=== PATIENT | female | born 1935 | race Caucasian/White ===

== ENCOUNTER → 2017-04-07 | Outpatient (CLI) | payer OTHER ==
[~2017-04-07] MED LIST: ABAC300; ACET325 PO; ACET500 PO; ALBU90OI; ALBU90OI INH; ALBU90OI6 INH; ALBU90OI61 INH; ALLO100 PO; ALPR.5 PO; ALUM320SU PO; ALUMAG30SU PO; AMIT100; AMIT25 PO; AMIT50 PO; AMLO10 PO; AMLO5 PO; AMOX1XR PO; ANTACID II SIM PO; ASPERCREME76.5 GM TOP; ASPI325 PO; ASPI81CH PO; ASPI81EC PO; ATOR20 PO; ATOR40TA; AZIT250 PO; AZIT500 PO; Acetaminophen325 M1 PO; Acidophilus La100 GM; Anti-Diarrheal2 MG PO; Artificial Tear15 M4 BOTHEYES; Aspir 8181 MG PO; Ativan0.5 MG PO; BIOTIN5000 MCG PO; BISA10S PR; BUSP5 PO; Bacid1 EACH PO; Bactrim 400-801 EACH PO; Bactrim Ds Tab1 EACH PO; Bactroban22 GM TOP; CEFP200 PO; CEPH500; CEPH500 PO; CHOL10002; CHOL10002 PO; CIPR250 PO; CITA20; CITA20 PO; CITALOPRAM PO; CLON.5; CLON.5 PO; CLOP75 PO; CLOT10 TOP; COLCRYS0.6 MG PO; COLL250TO TOP; CULTURELLE1 EACH PO; Citalopram HBr40 MG PO; Cleocin HCl300 MG PO; Colace100 MG PO; Culturelle1 CAP PO; D3-20002000 UNIT; DARB200I SC; DOCU100 PO; DOXY100 PO; ENOX40I SC; ENOX60I SC; ERGO50000 PO; ERYT1OIN LEFTEYE; ESCI10 PO; FAMO20 PO; FAMO40 PO; FEBU40TA; FEBU40TA PO; FENT25TP; FENTANYL PATCH TOP; FERR325 PO; FERREX; FLUC150A PO; FLUC200 PO; FLUO10 PO; FLUSAL2505 IH; FURO20; FURO20 PO; FURO40 PO; FURO80; FURO80 PO; Ferus150 MG PO; Fleet Enema132 ML PR; Florastor250 MG PO; GABA100 PO; GABA300 PO; GLYB5; Guaifenesin Wit10 ML PO; Guaifenesin-Co118 ML PO; HUMALIN N SQ; HYDACE5; HYDACE5 PO; HYDCHLSU; HYDR1TAB94; HYDR1TAB94 PO; HYDRA25 PO; Humalog100 UNIT/1 SC; INSDET100 SQ; INSLI100I SC; INSLI100I SUBQ; INSLIS75I; INSLIS75I SC; INSU7030P SC; INSUASPI SC; INSUASPI SS; INSULANI SC; INSULANI SUBQ; INSULANPEN SC; INSULANPEN SQ; IODOSORB; IRON PO; IRON150C PO; Keflex500 MG PO; Kristalose20 GM PO; LAVAP17G PO; LEVOTHYROXINE SODIUM PO; LEVSOD100; LEVSOD100 PO; LEVSOD112 PO; LEVSOD125 PO; LEVSOD137 PO; LEVSOD150 PO; LEVSOD75 PO; LISI10 PO; LISI20; LISI20 PO; LISI5 PO; LISINOPRIL PO; LOPE2C; LOPE2C PO; LOSHYD; Lantus100 UNIT/1; Lantus100 UNIT/1 SC; Lisinopril2.5 MG; Lisinopril2.5 MG PO; METF500C PO; METO10 PO; METO25; METO25 PO; METO25ER PO; METO50 PO; METO5A PO; METOPROLOL PO; METR500 PO; MIRT15 PO; MYLANTA; Macrobid 100 M100 MG PO; Metoprolol Tart25 MG PO; Micro-K10 MEQ PO; Milk Of Ma400 MG/5 M PO; NAPR500; NAPR550 PO; NEXIUM PO; NITR.4SL SL; NYST100P TOP; NYST100TC TOP; NYSTRITC TOP; Naproxen500 MG PO; Nitrostat0.4 MG SL; Norco 5-325 Ta1 EACH PO; Novolog100 UNIT/2; Novolog100 UNIT/2 SC; Nystatin15 GM TOP; OMEP20ER; OMEP20ER PO; OMEPRAZOLE MAGN20 MG PO; ONDA4ODT MM; OXYACE5T PO; OXYC10TA19 PO; OXYC5; OXYC5 PO; OXYCODONE 5 MG PO; Omeprazole20 M1; Oxycodone HCl5 M1 PO; PANT40 PO; PARI1 PO; POTA10T PO; POTCHL10ER; POTCHL10ER PO; PRAV20 PO; PRED20; PRED20 PO; PROCODE120 PO; PROM25 PO; Pedi-Dri 100,0060 GM TOP; Prinivil10 MG PO; Prozac20 MG PO; QUET100 PO; QUET25 PO; ROXICODONE5 MG PO; Roxicodone5 MG PO; SACC250C; SACC250C PO; SERT25 PO; SULTRIDS PO; Seroquel50 MG PO; Synthroid125 MCG; Synthroid150 MCG; Synthroid175 MCG PO; Systane 0.3-0.1 EACH BOTHEYES; TOCO400 PO; TRAM50 PO; TRAZ50 PO; Tylenol325 MG PO; Uloric80 MG PO; Unasyn 3 gm3 GM IM; VALS160; VANCOMYCIN HCL PO; VIIBRYD20 MG PO; VITAMIN D22000 UNIT PO; VITAMIN D35000 UNI1 PO; VITAMIN D35000 UNIT PO; Vancocin HCL1000 M1 PO; Zithromax250 MG PO; [UNRECOGNIZED DRUG - CODE]; [UNRECOGNIZED DRUG - OTHER]; [UNRECOGNIZED DRUG - OTHER] PO
[2017-04-07 08:43] LABS: Bilirubin, Urine Neg (Neg); Blood, Urine Neg (Neg); Glucose Qualitative, Urine Neg (Neg); Ketones, Urine Neg (Neg); Leukocyte Esterase, Urine 1+ (Neg); Nitrite, Urine Neg (Neg); Protein, Urine Neg (Neg); Urobilinogen, Urine NORM (Normal)
[2017-04-07 08:57] LABS: Appearance, Urine Clear (Clear); Color, Urine Yellow (P-Yellow)
[2017-04-07 08:59] LABS: Bacteria Few /hpf; Granular Casts 0-2 /lpf (0); Red Blood Cells, Urine Not Seen /hpf (0-2); Squamous Epithelial Cells Few /hpf (Few)
== END ==
LOC: LAB 08:07 → LAB SHORT 08:07
PROVIDERS: Nurse Practitioner Primary Care
DX: N39.0 Urinary tract infection, site not specified (principal)
CPT/HCPCS: 81001; 87086

== ENCOUNTER 2017-04-13 17:32 | Emergency (ER) | payer OTHER ==
[~2017-04-13] VITALS: Ht 162.6 cm; Wt 90.7 kg
[~2017-04-13 17:32] MED LIST changes: -Artificial Tear15 M4 BOTHEYES; -CHOL10002; -ERYT1OIN LEFTEYE; -FEBU40TA; -FEBU40TA PO; -FURO80 PO; -Keflex500 MG PO; -Kristalose20 GM PO; -NYSTRITC TOP; -Novolog100 UNIT/2 SC; -Pedi-Dri 100,0060 GM TOP; -Systane 0.3-0.1 EACH BOTHEYES; -Uloric80 MG PO
[2017-04-13] MEDS ORDERED: Culturelle1 CAP PO (17:50)
[2017-04-13] MEDS ORDERED: NYSTRITC TOP (17:55)
[2017-12-26] MEDS ORDERED: ERYT1OIN LEFTEYE (13:27)
[2018-01-07] MEDS ORDERED: INSULANPEN SC (14:06)
[2018-01-07] MEDS ORDERED: Novolog100 UNIT/2 SC (14:13)
[2018-01-20] MEDS ORDERED: FURO80 PO (19:12)
[2018-01-20] MEDS ORDERED: Uloric80 MG PO (19:18)
[2018-01-20] MEDS ORDERED: Pedi-Dri 100,0060 GM TOP (19:20)
[2018-01-20] MEDS ORDERED: Systane 0.3-0.1 EACH BOTHEYES (19:21)
== END 2017-04-13 19:46 | disposition home or self-care (01) ==
LOC: ER 17:32
DX: M79.644 Pain in right finger(s) (principal); Z88.8 Allergy status to other drugs, medicaments and biological substances; Z88.1 Allergy status to other antibiotic agents; Z79.899 Other long term (current) drug therapy; Z79.4 Long term (current) use of insulin; Z79.82 Long term (current) use of aspirin; E11.9 Type 2 diabetes mellitus without complications; I11.0 Hypertensive heart disease with heart failure; I50.9 Heart failure, unspecified; K21.9 Gastro-esophageal reflux disease without esophagitis; E03.9 Hypothyroidism, unspecified; F41.9 Anxiety disorder, unspecified; F32.9 Major depressive disorder, single episode, unspecified
CPT/HCPCS: 29130; 73130; 99283

== ENCOUNTER 2017-06-06 09:56 | Day surgery (SDC) | payer OTHER ==
[~2017-06-06] VITALS: Ht 162.6 cm; Wt 100.7 kg
[~2017-06-06 09:56] MED LIST changes: +NYSTRITC TOP
[2017-06-06] MEDS ORDERED: ALLO100 PO (11:19)
[2017-06-06] MEDS ORDERED: CLOP75 PO (11:20)
[2017-06-06] MEDS ORDERED: HYDR1TAB94 PO ×2 (11:27→11:28)
== END 2017-06-06 15:15 | disposition home or self-care (01) ==
LOC: ORSCSDS 09:56
PROVIDERS: Orthopaedic Surgery
PROC: 0LB Tendons, Excision (ICD-10-PCS; principal; 2017-06-06 12:00)
PROC: 0X6Q0Z2 Detachment at Right Middle Finger, Mid, Open Approach (ICD-10-PCS; principal; 2017-06-06 12:00)
DX: S62.652A Nondisplaced fracture of middle phalanx of right middle finger, initial encounter for closed fracture (principal); M1A.9XX1 Chronic gout, unspecified, with tophus (tophi); I10 Essential (primary) hypertension; I25.10 Atherosclerotic heart disease of native coronary artery without angina pectoris; J44.9 Chronic obstructive pulmonary disease, unspecified; G47.33 Obstructive sleep apnea (adult) (pediatric); E11.9 Type 2 diabetes mellitus without complications; E03.9 Hypothyroidism, unspecified; E78.5 Hyperlipidemia, unspecified; E66.01 Morbid (severe) obesity due to excess calories; Z79.82 Long term (current) use of aspirin; Z79.899 Other long term (current) drug therapy; Z79.4 Long term (current) use of insulin
CPT/HCPCS: 82947; 88305; 88311; 89060; J0171; J0690; J2550; J3010

== ENCOUNTER 2017-08-09 13:55 | Emergency (ER) | payer OTHER ==
[~2017-08-09] VITALS: Ht 162.6 cm; Wt 104.3 kg
[2017-08-09 15:53] LABS: BASOPHILS ABSOLUTE AUTO 0.04 K/mm3 (0.00-0.23); BASOPHILS PERCENT AUTO 1 % (0-2); EOSINOPHILS ABSOLUTE AUTO 0.09 K/mm3 (0.00-0.68); EOSINOPHILS PERCENT AUTO 1 % (0-6); Hematocrit 39.1 % (33.0-51.0); Hemoglobin 12.9 g/dL (11.5-16.0); IMMATURE GRAN ABSOLUTE AUTO 0.12 K/mm3 (0.00-0.10); IMMATURE GRAN PERCENT AUTO 2 % (0-1); LYMPHOCYTES ABSOLUTE AUTO 2.15 K/mm3 (0.84-5.20); LYMPHOCYTES PERCENT AUTO 27 % (21-46); MONOCYTES ABSOLUTE AUTO 1.43 K/mm3 (0.16-1.47); MONOCYTES PERCENT AUTO 18 % (4-13); Mean Corpuscular HGB 31.8 pg (26.0-34.0); Mean Corpuscular Volume 96 fL (80-100); Mean Platelet Volume 11.2 fL (9.1-12.4); NEUTROPHILS ABSOLUTE AUTO 4.11 K/mm3 (1.96-9.15); NEUTROPHILS PERCENT AUTO 52 % (41-73); Platelet Count 158 K/mm3 (150-400); RDW Coefficient Variation 13.5 % (11.7-14.2); RDW Standard Deviation 47.8 fL (35.1-46.3); Red Blood Cell Count 4.06 M/mm3 (3.80-5.20); White Blood Cell Count 7.94 K/mm3 (4.00-11.30)
[2017-08-09 16:09] LABS: Troponin I <0.015 ng/mL (0.000-0.040)
[2017-08-09 16:45] LABS: Alanine Aminotransfer (ALT/SGP 12 U/L (12-78); Albumin, Blood 3.7 g/dL (3.4-5.0); Anion Gap 9 mmol/L (6-16); Aspartate Aminotrans (AST/SGOT 14 U/L (12-37); Blood Urea Nitrogen 58 mg/dL (8-24); CO2, Blood 26 mmol/L (21-32); Calcium, Blood 8.7 mg/dL (8.5-10.1); Chloride, Blood 102 mmol/L (98-108); Creatinine, Blood 2.07 mg/dL (0.40-1.00); Globulin, Blood 3.8 g/dL (2.2-4.0); Glomerular Filtration Rate 24 (60-); Glucose, Blood 190 mg/dL (70-99); Sodium, Blood 137 mmol/L (136-145); Total Protein, Blood 7.5 g/dL (6.4-8.2)
[2017-08-09 16:59] LABS: Alk Phos 131 U/L (50-136); Bilirubin, Total 0.5 mg/dL (0.1-1.0)
[2017-08-09] MEDS ORDERED: Norco 5-325 Ta1 EACH PO (17:20)
== END 2017-08-09 18:52 | disposition home or self-care (01) ==
LOC: ER 13:55
PROVIDERS: Emergency Medicine
DX: S29.011A Strain of muscle and tendon of front wall of thorax, initial encounter (principal); X58.XXXA Exposure to other specified factors, initial encounter; Z88.8 Allergy status to other drugs, medicaments and biological substances; Z88.1 Allergy status to other antibiotic agents; Z79.899 Other long term (current) drug therapy; Z79.4 Long term (current) use of insulin; Z79.82 Long term (current) use of aspirin; E11.9 Type 2 diabetes mellitus without complications; I11.0 Hypertensive heart disease with heart failure; I50.9 Heart failure, unspecified; K21.9 Gastro-esophageal reflux disease without esophagitis; F41.9 Anxiety disorder, unspecified; F32.9 Major depressive disorder, single episode, unspecified
CPT/HCPCS: 36415; 71046; 80053; 84484; 85025; 85379; 93005; 93010; 99284-25; J3010

== ENCOUNTER 2017-08-22 04:57 | Emergency (ER) | payer OTHER ==
[~2017-08-22] VITALS: Ht 162.6 cm; Wt 113.4 kg
[2017-08-22] MEDS ORDERED: FEBU40TA PO (05:32)
[2017-08-22] MEDS ORDERED: Artificial Tear15 M4 BOTHEYES (05:34)
[2017-08-22] MEDS ORDERED: HYDR1TAB94 PO (07:14)
[2017-08-22] MEDS ORDERED: Keflex500 MG PO (07:14)
== END 2017-08-22 07:52 | disposition home or self-care (01) ==
LOC: ER 04:57
DX: M25.522 Pain in left elbow (principal); E11.9 Type 2 diabetes mellitus without complications; I11.0 Hypertensive heart disease with heart failure; I50.9 Heart failure, unspecified; K21.9 Gastro-esophageal reflux disease without esophagitis; F41.9 Anxiety disorder, unspecified; F32.9 Major depressive disorder, single episode, unspecified; Z88.8 Allergy status to other drugs, medicaments and biological substances; Z88.1 Allergy status to other antibiotic agents; Z79.4 Long term (current) use of insulin; Z79.899 Other long term (current) drug therapy; Z79.82 Long term (current) use of aspirin
CPT/HCPCS: 73080; 84550; 99284

== ENCOUNTER 2017-09-14 20:53 | Emergency (ER) | payer OTHER ==
[~2017-09-14] VITALS: Ht 162.6 cm; Wt 90.7 kg
[~2017-09-14 20:53] MED LIST changes: +Artificial Tear15 M4 BOTHEYES; +FEBU40TA PO; +Keflex500 MG PO
[2017-09-14] MEDS ORDERED: HYDR1TAB94 PO (21:39)
[2017-09-14] MEDS ORDERED: Kristalose20 GM PO (21:45)
== END 2017-09-14 22:30 | disposition home or self-care (01) ==
LOC: ER 20:53
DX: K59.00 Constipation, unspecified (principal); I11.0 Hypertensive heart disease with heart failure; I50.9 Heart failure, unspecified; E11.9 Type 2 diabetes mellitus without complications; E03.9 Hypothyroidism, unspecified; F41.9 Anxiety disorder, unspecified; F32.9 Major depressive disorder, single episode, unspecified; K21.9 Gastro-esophageal reflux disease without esophagitis; Z79.4 Long term (current) use of insulin; Z79.899 Other long term (current) drug therapy; Z79.82 Long term (current) use of aspirin
CPT/HCPCS: 74018; 99283-25

== ENCOUNTER 2017-11-02 17:52 | Emergency (ER) | payer OTHER ==
[~2017-11-02] VITALS: Ht 167.6 cm; Wt 108.9 kg
[~2017-11-02 17:52] MED LIST changes: +Kristalose20 GM PO
[2017-11-02 18:10] LABS: Source, Urine Clean Catch
[2017-11-02 18:14] LABS: Appearance, Urine Cloudy (Clear); Bilirubin, Urine Neg (Neg); Blood, Urine 3+ (Neg); Color, Urine Yellow (P-Yellow); Glucose Qualitative, Urine Neg (Neg); Ketones, Urine Neg (Neg); Leukocyte Esterase, Urine 3+ (Neg); Nitrite, Urine Pos (Neg); Protein, Urine 2+ (Neg); Urobilinogen, Urine NORM (Normal)
[2017-11-02 18:33] LABS: BASOPHILS ABSOLUTE AUTO 0.03 K/mm3 (0.00-0.23); BASOPHILS PERCENT AUTO 0 % (0-2); EOSINOPHILS ABSOLUTE AUTO 0.04 K/mm3 (0.00-0.68); EOSINOPHILS PERCENT AUTO 0 % (0-6); Hematocrit 37.2 % (33.0-51.0); IMMATURE GRAN ABSOLUTE AUTO 0.07 K/mm3 (0.00-0.10); IMMATURE GRAN PERCENT AUTO 1 % (0-1); LYMPHOCYTES ABSOLUTE AUTO 2.42 K/mm3 (0.84-5.20); LYMPHOCYTES PERCENT AUTO 26 % (21-46); MONOCYTES ABSOLUTE AUTO 1.68 K/mm3 (0.16-1.47); MONOCYTES PERCENT AUTO 18 % (4-13); Mean Corpuscular HGB 31.7 pg (26.0-34.0); Mean Corpuscular HGB Conc 32.3 g/dL (31.5-36.5); Mean Corpuscular Volume 98 fL (80-100); Mean Platelet Volume 10.5 fL (9.1-12.4); NEUTROPHILS ABSOLUTE AUTO 4.91 K/mm3 (1.96-9.15); NEUTROPHILS PERCENT AUTO 54 % (41-73); Platelet Count 155 K/mm3 (150-400); RDW Coefficient Variation 13.2 % (11.7-14.2); RDW Standard Deviation 47.8 fL (35.1-46.3); Red Blood Cell Count 3.78 M/mm3 (3.80-5.20); White Blood Cell Count 9.15 K/mm3 (4.00-11.30)
[2017-11-02 18:35] LABS: Bacteria Many /hpf; White Blood Cells, Urine TNTC /hpf (0-5)
[2017-11-02 18:36] LABS: Oval Fat Bodies Rare /lpf; Squamous Epithelial Cells Few /hpf (Few)
[2017-11-02 19:17] LABS: Albumin, Blood 3.6 g/dL (3.4-5.0); Bilirubin, Total 0.6 mg/dL (0.1-1.0); Bun/Creatinine Ratio 15.5 (12.0-20.0); Calcium, Blood 9.1 mg/dL (8.5-10.1); Creatinine, Blood 2.45 mg/dL (0.40-1.00); Globulin, Blood 3.7 g/dL (2.2-4.0); Potassium, Blood 3.9 mmol/L (3.5-5.5); Total Protein, Blood 7.3 g/dL (6.4-8.2)
[2017-11-02] MEDS ORDERED: CEPH500 PO (19:17)
== END 2017-11-02 20:37 | disposition home or self-care (01) ==
LOC: ER 17:52
PROVIDERS: Emergency Medicine
DX: N39.0 Urinary tract infection, site not specified (principal); I13.0 Hypertensive heart and chronic kidney disease with heart failure and stage 1 through stage 4 chronic kidney disease, or unspecified chronic kidney disease; E11.22 Type 2 diabetes mellitus with diabetic chronic kidney disease; N18.9 Chronic kidney disease, unspecified; I50.9 Heart failure, unspecified; K21.9 Gastro-esophageal reflux disease without esophagitis; E03.9 Hypothyroidism, unspecified; F41.9 Anxiety disorder, unspecified; F32.9 Major depressive disorder, single episode, unspecified; Z88.8 Allergy status to other drugs, medicaments and biological substances; Z88.1 Allergy status to other antibiotic agents; Z79.899 Other long term (current) drug therapy; Z79.4 Long term (current) use of insulin; Z79.82 Long term (current) use of aspirin
CPT/HCPCS: 36415; 51701; 80053; 81001; 85025; 87077; 87086; 87186; 96365; 99285-25; J0696

== ENCOUNTER 2017-11-09 04:24 | Emergency (ER) | payer OTHER ==
[~2017-11-09] VITALS: Ht 162.6 cm; Wt 113.4 kg
[2017-11-09] MEDS ORDERED: Culturelle1 CAP PO (04:39)
[2017-11-09] MEDS ORDERED: Novolog100 UNIT/2 (04:40)
[2017-11-09] MEDS ORDERED: CHOL10002 (04:41)
[2017-11-09] MEDS ORDERED: FEBU40TA (04:41)
[2017-11-09 05:10] LABS: Calcium, Ionized (POC) 1.08 mmol/L (1.10-1.46); Chloride (POC) 96 mmol/L (98-108); Creatinine (POC) 2.2 mg/dL (0.6-1.0); Glucose (ISTAT POC) 208 mg/dL (70-99); Hemoglobin (POC) 11.2 g/dL (12.0-16.0); Sodium (POC) 135 mmol/L (135-148); Total CO2 (POC) 28 mmol/L (21-32)
[2017-11-09 05:18] LABS: BASOPHILS ABSOLUTE AUTO 0.03 K/mm3 (0.00-0.23); BASOPHILS PERCENT AUTO 1 % (0-2); EOSINOPHILS ABSOLUTE AUTO 0.07 K/mm3 (0.00-0.68); EOSINOPHILS PERCENT AUTO 1 % (0-6); Hematocrit 34.1 % (33.0-51.0); Hemoglobin 11.3 g/dL (11.5-16.0); IMMATURE GRAN ABSOLUTE AUTO 0.11 K/mm3 (0.00-0.10); IMMATURE GRAN PERCENT AUTO 2 % (0-1); LYMPHOCYTES PERCENT AUTO 29 % (21-46); MONOCYTES ABSOLUTE AUTO 0.66 K/mm3 (0.16-1.47); MONOCYTES PERCENT AUTO 12 % (4-13); Mean Corpuscular HGB 32.2 pg (26.0-34.0); Mean Corpuscular HGB Conc 33.1 g/dL (31.5-36.5); Mean Corpuscular Volume 97 fL (80-100); Mean Platelet Volume 10.1 fL (9.1-12.4); NEUTROPHILS ABSOLUTE AUTO 3.14 K/mm3 (1.96-9.15); NEUTROPHILS PERCENT AUTO 56 % (41-73); Platelet Count 194 K/mm3 (150-400); RDW Standard Deviation 46.5 fL (35.1-46.3); Red Blood Cell Count 3.51 M/mm3 (3.80-5.20); White Blood Cell Count 5.61 K/mm3 (4.00-11.30)
[2017-11-09 05:40] LABS: Alanine Aminotransfer (ALT/SGP 16 U/L (12-78); Albumin, Blood 3.3 g/dL (3.4-5.0); Albumin/Globulin Ratio 0.9 (0.8-1.8); Alk Phos 105 U/L (50-136); Anion Gap 8 mmol/L (6-16); Aspartate Aminotrans (AST/SGOT 15 U/L (12-37); Bilirubin, Total 0.5 mg/dL (0.1-1.0); Blood Urea Nitrogen 50 mg/dL (8-24); Bun/Creatinine Ratio 24.3 (12.0-20.0); CO2, Blood 28 mmol/L (21-32); Calcium, Blood 8.7 mg/dL (8.5-10.1); Chloride, Blood 99 mmol/L (98-108); Creatinine, Blood 2.06 mg/dL (0.40-1.00); Globulin, Blood 3.7 g/dL (2.2-4.0); Glomerular Filtration Rate 25 (60-); Glucose, Blood 201 mg/dL (70-99); Sodium, Blood 135 mmol/L (136-145); Troponin I <0.015 ng/mL (0.000-0.040)
[2017-11-09 05:53] LABS: Bilirubin, Urine Neg (Neg); Blood, Urine Neg (Neg); Glucose Qualitative, Urine Neg (Neg); Ketones, Urine Neg (Neg); Leukocyte Esterase, Urine Neg (Neg); Nitrite, Urine Neg (Neg); Protein, Urine Neg (Neg); Urobilinogen, Urine NORM (Normal)
[2017-11-09 06:02] LABS: Appearance, Urine Clear (Clear); Color, Urine Yellow (P-Yellow)
== END 2017-11-09 08:01 | disposition home or self-care (01) ==
LOC: ER 04:24
PROVIDERS: Emergency Medicine
DX: M54.5 Low back pain (principal); E11.9 Type 2 diabetes mellitus without complications; I10 Essential (primary) hypertension; I50.9 Heart failure, unspecified; K21.9 Gastro-esophageal reflux disease without esophagitis; E03.9 Hypothyroidism, unspecified; F31.9 Bipolar disorder, unspecified; F41.9 Anxiety disorder, unspecified; Z88.8 Allergy status to other drugs, medicaments and biological substances; Z88.1 Allergy status to other antibiotic agents; Z79.899 Other long term (current) drug therapy; Z79.4 Long term (current) use of insulin; Z79.82 Long term (current) use of aspirin; Z79.01 Long term (current) use of anticoagulants
CPT/HCPCS: 36415; 51701; 80047; 80053; 81003; 84484; 85014; 85025; 93005; 93010; 99284-25

== ENCOUNTER 2018-02-12 17:59 | Emergency (ER) | payer OTHER ==
[~2018-02-12] VITALS: Ht 170.2 cm; Wt 95.2 kg
[~2018-02-12 17:59] MED LIST changes: +CHOL10002; +ERYT1OIN LEFTEYE; +FEBU40TA; +FURO80 PO; +Novolog100 UNIT/2 SC; +Pedi-Dri 100,0060 GM TOP; +Systane 0.3-0.1 EACH BOTHEYES; +Uloric80 MG PO
== END 2018-02-12 19:54 | disposition home or self-care (01) ==
LOC: ER 17:59
DX: R51 Headache (principal); I11.0 Hypertensive heart disease with heart failure; I50.9 Heart failure, unspecified; E11.9 Type 2 diabetes mellitus without complications; K21.9 Gastro-esophageal reflux disease without esophagitis; E03.9 Hypothyroidism, unspecified; F32.9 Major depressive disorder, single episode, unspecified; F41.9 Anxiety disorder, unspecified; Z79.4 Long term (current) use of insulin; Z79.899 Other long term (current) drug therapy
CPT/HCPCS: 70450; 99284-25

== ENCOUNTER 2018-02-25 04:57 | Emergency (ER) | payer OTHER ==
[~2018-02-25] VITALS: Ht 154.9 cm; Wt 113.4 kg
[2018-02-25 05:25] LABS: Calcium, Ionized (POC) 1.09 mmol/L (1.10-1.46); Chloride (POC) 98 mmol/L (98-108); Creatinine (POC) 2.2 mg/dL (0.6-1.0); Glucose (ISTAT POC) 202 mg/dL (70-99); Hemoglobin (POC) 11.9 g/dL (12.0-16.0); Potassium (POC) 3.7 mmol/L (3.5-5.5); Sodium (POC) 139 mmol/L (135-148); Total CO2 (POC) 28 mmol/L (21-32)
[2018-02-25] MEDS ORDERED: CULTURELLE PRO1 EACH PO (05:30)
[2018-02-25 05:46] LABS: BASOPHILS ABSOLUTE AUTO 0.03 K/mm3 (0.00-0.23); BASOPHILS PERCENT AUTO 1 % (0-2); EOSINOPHILS ABSOLUTE AUTO 0.06 K/mm3 (0.00-0.68); EOSINOPHILS PERCENT AUTO 1 % (0-6); Hematocrit 37.6 % (33.0-51.0); Hemoglobin 12.3 g/dL (11.5-16.0); IMMATURE GRAN ABSOLUTE AUTO 0.05 K/mm3 (0.00-0.10); IMMATURE GRAN PERCENT AUTO 1 % (0-1); LYMPHOCYTES ABSOLUTE AUTO 2.01 K/mm3 (0.84-5.20); LYMPHOCYTES PERCENT AUTO 35 % (21-46); MONOCYTES ABSOLUTE AUTO 0.62 K/mm3 (0.16-1.47); MONOCYTES PERCENT AUTO 11 % (4-13); Mean Corpuscular HGB Conc 32.7 g/dL (31.5-36.5); Mean Corpuscular Volume 98 fL (80-100); Mean Platelet Volume 10.4 fL (9.1-12.4); NEUTROPHILS ABSOLUTE AUTO 2.94 K/mm3 (1.96-9.15); NEUTROPHILS PERCENT AUTO 51 % (41-73); Platelet Count 137 K/mm3 (150-400); RDW Standard Deviation 45.6 fL (35.1-46.3); Red Blood Cell Count 3.84 M/mm3 (3.80-5.20); White Blood Cell Count 5.71 K/mm3 (4.00-11.30)
[2018-02-25] MEDS ORDERED: NITR.4SL SL (05:48)
[2018-02-25 05:59] LABS: Alanine Aminotransfer (ALT/SGP 7 U/L (12-78); Albumin, Blood 3.4 g/dL (3.4-5.0); Albumin/Globulin Ratio 0.9 (0.8-1.8); Alk Phos 93 U/L (50-136); Anion Gap 8 mmol/L (6-16); Aspartate Aminotrans (AST/SGOT 12 U/L (12-37); Bilirubin, Total 0.4 mg/dL (0.1-1.0); Blood Urea Nitrogen 47 mg/dL (8-24); Bun/Creatinine Ratio 19.6 (12.0-20.0); CO2, Blood 30 mmol/L (21-32); Calcium, Blood 8.4 mg/dL (8.5-10.1); Chloride, Blood 101 mmol/L (98-108); Ethanol (Alcohol), Blood, Med <3 mg/dL; Globulin, Blood 3.6 g/dL (2.2-4.0); Glomerular Filtration Rate 21 (60-); Glucose, Blood 200 mg/dL (70-99); Potassium, Blood 3.9 mmol/L (3.5-5.5); Sodium, Blood 139 mmol/L (136-145)
[2018-02-25 07:07] LABS: Source, Urine Clean Catch
[2018-02-25 07:21] LABS: Bilirubin, Urine Neg (Neg); Blood, Urine 1+ (Neg); Glucose Qualitative, Urine Neg (Neg); Ketones, Urine Neg (Neg); Leukocyte Esterase, Urine 3+ (Neg); Nitrite, Urine Neg (Neg); Protein, Urine Neg (Neg); Urobilinogen, Urine NORM (Normal)
[2018-02-25 07:23] LABS: Appearance, Urine Hazy (Clear); Color, Urine Yellow (P-Yellow)
[2018-02-25 07:34] LABS: White Blood Cells, Urine TNTC /hpf (0-5)
[2018-02-25 07:35] LABS: Bacteria Many /hpf; Red Blood Cells, Urine 0-2 /hpf (0-2); Squamous Epithelial Cells Mod /hpf (Few); Transitional Epithelial Cells Few /hpf (0-Rare)
[2018-02-25 07:36] LABS: U Amphetamine Screen Not Detected; U Barbituate Screen Not Detected; U Benzodiazapine Screen Not Detected; U Buprenorphine Screen Not Detected; U Cannabinoids Screen Not Detected; U Cocaine Screen Not Detected; U Methadone Screen Not Detected; U Methamphetamine Screen Not Detected; U Opiates Screen Not Detected; U Oxycodone Screen Not Detected; U Phencyclidine Screen Not Detected; U Propoxyphene Screen Not Detected
[2018-02-25] MEDS ORDERED: Macrobid 100 M100 MG PO (09:46)
== END 2018-02-25 11:25 | disposition home or self-care (01) ==
LOC: ER 04:57
PROVIDERS: Emergency Medicine
DX: N39.0 Urinary tract infection, site not specified (principal); I11.0 Hypertensive heart disease with heart failure; I50.9 Heart failure, unspecified; E11.9 Type 2 diabetes mellitus without complications; K21.9 Gastro-esophageal reflux disease without esophagitis; E03.9 Hypothyroidism, unspecified; F41.9 Anxiety disorder, unspecified; F32.9 Major depressive disorder, single episode, unspecified; Z88.8 Allergy status to other drugs, medicaments and biological substances; Z79.899 Other long term (current) drug therapy; Z79.4 Long term (current) use of insulin
CPT/HCPCS: 71046; 80047; 80053; 81001; 85014; 85025; 87086; 93005; 93010; 96365; 99285-25; G0480; J0696; P9612

== ENCOUNTER 2018-07-24 23:44 | Inpatient (IN) | payer OTHER ==
[~2018-07-24] VITALS: Ht 162.6 cm; Wt 98.6 kg
[~2018-07-24 23:44] MED LIST changes: +CULTURELLE PRO1 EACH PO
[2018-07-25 00:21] LABS: BASOPHILS ABSOLUTE AUTO 0.02 K/mm3 (0.00-0.23); BASOPHILS PERCENT AUTO 0 % (0-2); EOSINOPHILS ABSOLUTE AUTO 0.03 K/mm3 (0.00-0.68); EOSINOPHILS PERCENT AUTO 1 % (0-6); Hematocrit 37.8 % (33.0-51.0); Hemoglobin 12.1 g/dL (11.5-16.0); IMMATURE GRAN ABSOLUTE AUTO 0.09 K/mm3 (0.00-0.10); IMMATURE GRAN PERCENT AUTO 1 % (0-1); LYMPHOCYTES ABSOLUTE AUTO 0.96 K/mm3 (0.84-5.20); LYMPHOCYTES PERCENT AUTO 15 % (21-46); MONOCYTES ABSOLUTE AUTO 0.97 K/mm3 (0.16-1.47); MONOCYTES PERCENT AUTO 15 % (4-13); Mean Corpuscular Volume 94 fL (80-100); Mean Platelet Volume 10.4 fL (9.1-12.4); NEUTROPHILS ABSOLUTE AUTO 4.34 K/mm3 (1.96-9.15); NEUTROPHILS PERCENT AUTO 68 % (41-73); Platelet Count 123 K/mm3 (150-400); RDW Coefficient Variation 12.7 % (11.7-14.2); RDW Standard Deviation 43.4 fL (35.1-46.3); Red Blood Cell Count 4.04 M/mm3 (3.80-5.20); White Blood Cell Count 6.41 K/mm3 (4.00-11.30)
[2018-07-25 00:40] LABS: Alanine Aminotransfer (ALT/SGP 13 U/L (12-78); Albumin, Blood 3.4 g/dL (3.4-5.0); Albumin/Globulin Ratio 0.9 (0.8-1.8); Alk Phos 81 U/L (50-136); Anion Gap 7 mmol/L (6-16); Aspartate Aminotrans (AST/SGOT 12 U/L (12-37); Bilirubin, Total 0.4 mg/dL (0.1-1.0); Blood Urea Nitrogen 46 mg/dL (8-24); Bun/Creatinine Ratio 23.6 (12.0-20.0); CO2, Blood 28 mmol/L (21-32); Calcium, Blood 8.5 mg/dL (8.5-10.1); Chloride, Blood 103 mmol/L (98-108); Creatinine, Blood 1.95 mg/dL (0.40-1.00); Globulin, Blood 3.8 g/dL (2.2-4.0); Glomerular Filtration Rate 26 (60-); Glucose, Blood 163 mg/dL (70-99); Potassium, Blood 3.5 mmol/L (3.5-5.5); Sodium, Blood 138 mmol/L (136-145); Total Protein, Blood 7.2 g/dL (6.4-8.2); Troponin I <0.015 ng/mL (0.000-0.040)
[2018-07-25 01:05] LABS: Source, Urine Catheter
[2018-07-25 01:07] LABS: Bilirubin, Urine Neg (Neg); Blood, Urine 2+ (Neg); Glucose Qualitative, Urine Neg (Neg); Ketones, Urine Neg (Neg); Leukocyte Esterase, Urine Neg (Neg); Nitrite, Urine Neg (Neg); Protein, Urine 2+ (Neg); Urobilinogen, Urine NORM (Normal)
[2018-07-25 01:11] LABS: Appearance, Urine Clear (Clear); Color, Urine Yellow (P-Yellow)
[2018-07-25 01:29] LABS: Bacteria Few /hpf; Squamous Epithelial Cells Mod /hpf (Few); White Blood Cells, Urine 0-2 /hpf (0-5)
--- NOTE | 2018-07-25 05:00 | NUR ---
ADMIT NOTE: ADMIT 83 YEAR OLD FEMALE TO ICU [address] HERMELINDO GUDINO VIA ER. TRANSFER TO BED USING TRANFER SHEET. MONITOR PLACE SHOWING SINUS RHYTHM WITH FIRST DEGREE BLOCK HEART RATE 70'S-80'S. DENIES DISCOMFORT. BBLOOD CONSENT AND RELEASE OF INFORMATION COMPLETED. LUNG SOUNDS CLEAR WITH SLIGHTLY DECREASED BASES RESPIRATIONS REGULAR AND EASY AT REST WITH O2 IN PLACE AT 2L/MIN PER NASAL CANNULA SPO2 94-96%. ABDOMEN SOFT WITH BOWEL SOUNDS FOUR QUADS. INCONTINENT OF URINE ATTENDS CHANGED. ASSISTS WITH REPOSITIONING. CONTINUE TO MONITOR AND REPORT CHANGE IN PATIENT CONDITION. NARES THROAT AND RECTAL SWABS OBTAINED TO CLEAR ISOLATION.SKIN DRY INTACT NO EDEMA NOTED
[2018-07-25 05:27] LABS: BASOPHILS ABSOLUTE AUTO 0.01 K/mm3 (0.00-0.23); BASOPHILS PERCENT AUTO 0 % (0-2); EOSINOPHILS ABSOLUTE AUTO 0.01 K/mm3 (0.00-0.68); EOSINOPHILS PERCENT AUTO 0 % (0-6); Hematocrit 35.4 % (33.0-51.0); Hemoglobin 11.6 g/dL (11.5-16.0); IMMATURE GRAN ABSOLUTE AUTO 0.07 K/mm3 (0.00-0.10); IMMATURE GRAN PERCENT AUTO 1 % (0-1); LYMPHOCYTES ABSOLUTE AUTO 1.03 K/mm3 (0.84-5.20); LYMPHOCYTES PERCENT AUTO 17 % (21-46); MONOCYTES ABSOLUTE AUTO 0.56 K/mm3 (0.16-1.47); MONOCYTES PERCENT AUTO 9 % (4-13); Mean Corpuscular HGB 30.4 pg (26.0-34.0); Mean Corpuscular HGB Conc 32.8 g/dL (31.5-36.5); Mean Corpuscular Volume 93 fL (80-100); Mean Platelet Volume 10.1 fL (9.1-12.4); NEUTROPHILS ABSOLUTE AUTO 4.34 K/mm3 (1.96-9.15); NEUTROPHILS PERCENT AUTO 72 % (41-73); Platelet Count 128 K/mm3 (150-400); RDW Coefficient Variation 12.6 % (11.7-14.2); RDW Standard Deviation 42.9 fL (35.1-46.3); Red Blood Cell Count 3.82 M/mm3 (3.80-5.20); White Blood Cell Count 6.02 K/mm3 (4.00-11.30)
--- NOTE | 2018-07-25 06:00 | NUR ---
DR CASAREZ NOTIFIED OF BLOOD GLUCOSE AND ORDERS NOTED CANCEL D5 GTT.
[2018-07-25 06:09] LABS: Albumin, Blood 3.2 g/dL (3.4-5.0); Bilirubin, Total 0.7 mg/dL (0.1-1.0); Bun/Creatinine Ratio 24.6 (12.0-20.0); Calcium, Blood 8.4 mg/dL (8.5-10.1); Creatinine, Blood 1.91 mg/dL (0.40-1.00); Globulin, Blood 3.3 g/dL (2.2-4.0); Total Protein, Blood 6.5 g/dL (6.4-8.2)
[2018-07-25 06:12] LABS: Potassium, Blood 5.6 mmol/L (3.5-5.5)
--- NOTE | 2018-07-25 08:30 | NUR ---
DAUGHTER WITH SPOUSE AND PATIENT'S CAREGIVER AT BEDSIDE, NOTIFIED THAT WE NEED TWO HOME MEDICATIONS, FAMILY/CAREGIVER WILL BRING IN, CALL LIGHT IN REACH, WILL CONTINUE TO MONITOR.
[2018-07-25 08:49] LABS: Calcium, Blood 8.3 mg/dL (8.5-10.1); Creatinine, Blood 1.84 mg/dL (0.40-1.00); Potassium, Blood 5.2 mmol/L (3.5-5.5)
--- NOTE | 2018-07-25 09:32 | NUR ---
PATIENT IS SLEEPING AT THIS TIME, STATED "I AM SO TIRED, HAD A HARD TIME SLEEPING LAST NIGHT", CALL LIGHT IN REACH, WILL CONTINUE TO MONITOR.
--- NOTE | 2018-07-25 10:58 | NUR ---
VISITOR AT BEDSIDE, PATIENT SLEEPING AT THIS TIME, CALL LIGHT IN REACH, WILL CONTINUE TO MONITOR.
--- NOTE | 2018-07-25 13:56 | NUR ---
DR. BEACH CALLED AND UPDATE ON PATIENT'S CONDITION PROVIDED, STATUS CHANGE TO MEDICAL FLOOR, NO TELE, PATIENT WILL BE TRANSFERRED TO ROOM 228.
--- NOTE | 2018-07-25 15:08 | NUR ---
REPORT CALLED TO ALLY CHAUDHARI, ON SURGICAL FLOOR, PATIENT WILL BE MOVED TO ROOM 228 VIA BED AND ALL BELONGINGS AND MEDICATIONS.
--- NOTE | 2018-07-25 15:20 | NUR ---
PATIENT TRANSPORTED TO ROOM 228 VIA BED WITH ALL BELONGINGS AFTER REPORT CALLED TO ATTENDING RNFARA.
--- NOTE | 2018-07-25 15:42 | NUR ---
ARRIVAL TO UNIT PT ARRIVAL TO UNIT FROM ICU. ALERT AND ORIENTED. 1-2 ASSIST WITH TURNS. CHANGED ATTENDS AT THIS TIME. PT INCONTINENT AT BASELINE. NPO PER ORDERS. VSS. PT REPORTS ABD PAIN. WILL MEDICATE PER ORDERS. ORIENTED TO ROOM AND CALL LIGHT. BED ALARM IN PLACE FOR HX DEMENTIA AND FORGETFULLNESS.
--- NOTE | 2018-07-25 16:41 | NUR ---
SHIFT SUMMARY NO ACUTE CHANGES SINCE ARRIVAL TO UNIT. IVF STARTED PER ORDERS. PT REMAINS NPO. MEDICATED X1 WITH 12.5 MCG IV FENTANYL. CALL LIGHT WITHIN REACH.
[2018-07-26 04:38] LABS: BASOPHILS ABSOLUTE AUTO 0.01 K/mm3 (0.00-0.23); BASOPHILS PERCENT AUTO 0 % (0-2); EOSINOPHILS PERCENT AUTO 2 % (0-6); Hematocrit 37.1 % (33.0-51.0); Hemoglobin 11.7 g/dL (11.5-16.0); IMMATURE GRAN ABSOLUTE AUTO 0.04 K/mm3 (0.00-0.10); IMMATURE GRAN PERCENT AUTO 1 % (0-1); LYMPHOCYTES ABSOLUTE AUTO 0.83 K/mm3 (0.84-5.20); LYMPHOCYTES PERCENT AUTO 17 % (21-46); MONOCYTES ABSOLUTE AUTO 0.71 K/mm3 (0.16-1.47); MONOCYTES PERCENT AUTO 14 % (4-13); Mean Corpuscular HGB 30.1 pg (26.0-34.0); Mean Corpuscular HGB Conc 31.5 g/dL (31.5-36.5); Mean Corpuscular Volume 95 fL (80-100); Mean Platelet Volume 10.3 fL (9.1-12.4); NEUTROPHILS ABSOLUTE AUTO 3.32 K/mm3 (1.96-9.15); NEUTROPHILS PERCENT AUTO 66 % (41-73); Platelet Count 116 K/mm3 (150-400); RDW Coefficient Variation 12.7 % (11.7-14.2); Red Blood Cell Count 3.89 M/mm3 (3.80-5.20); White Blood Cell Count 5.01 K/mm3 (4.00-11.30)
[2018-07-26 04:59] LABS: Albumin, Blood 3.1 g/dL (3.4-5.0); Anion Gap 7 mmol/L (6-16); Blood Urea Nitrogen 35 mg/dL (8-24); Bun/Creatinine Ratio 21.6 (12.0-20.0); CO2, Blood 24 mmol/L (21-32); Calcium, Blood 7.8 mg/dL (8.5-10.1); Chloride, Blood 110 mmol/L (98-108); Creatinine, Blood 1.62 mg/dL (0.40-1.00); Glomerular Filtration Rate 32 (60-); Glucose, Blood 186 mg/dL (70-99); Phosphorus, Blood 2.2 mg/dL (2.5-4.9); Potassium, Blood 4.8 mmol/L (3.5-5.5); Sodium, Blood 141 mmol/L (136-145)
--- NOTE | 2018-07-26 05:31 | NUR ---
SUMMARY: PT ADMITTED FOR ACUTE DIVERTICULITIS. NO ACUTE CHANGE TONIGHT. VSS, PT VERY [place], FORGETFUL AT TIMES. PT HAS DENIED PAIN. HAD SOME NAUSEA THIS AM, PHENERGAN GIVEN, NO EMESIS. PT NPO. TURNS WELL PER SCRUB TECH, ATTENDS CHANGED PRN. FLUIDS AND ANTIBIOTICS INFUSED, WILL CTM AND REPORT TO DAY RN.
--- NOTE | 2018-07-26 18:01 | NUR ---
SHIFT SUMMARY PT HAS HAD MILD NAUSEA T/O THE DAY, MANAGED WITH ZOFRAN. PT REPOSITIONS HERSELF IN BED WITHOUT ASSISTANCE. VSS. WILL MONITOR UNTIL REPORT TO ONCOMING RN.
[2018-07-27 04:15] LABS: BASOPHILS ABSOLUTE AUTO 0.02 K/mm3 (0.00-0.23); BASOPHILS PERCENT AUTO 1 % (0-2); EOSINOPHILS ABSOLUTE AUTO 0.08 K/mm3 (0.00-0.68); EOSINOPHILS PERCENT AUTO 2 % (0-6); Hematocrit 35.8 % (33.0-51.0); Hemoglobin 11.1 g/dL (11.5-16.0); IMMATURE GRAN ABSOLUTE AUTO 0.06 K/mm3 (0.00-0.10); IMMATURE GRAN PERCENT AUTO 2 % (0-1); LYMPHOCYTES ABSOLUTE AUTO 0.71 K/mm3 (0.84-5.20); LYMPHOCYTES PERCENT AUTO 17 % (21-46); MONOCYTES ABSOLUTE AUTO 0.67 K/mm3 (0.16-1.47); MONOCYTES PERCENT AUTO 16 % (4-13); Mean Corpuscular HGB 29.8 pg (26.0-34.0); Mean Corpuscular Volume 96 fL (80-100); Mean Platelet Volume 10.2 fL (9.1-12.4); NEUTROPHILS ABSOLUTE AUTO 2.59 K/mm3 (1.96-9.15); NEUTROPHILS PERCENT AUTO 63 % (41-73); Platelet Count 124 K/mm3 (150-400); RDW Coefficient Variation 12.5 % (11.7-14.2); RDW Standard Deviation 43.8 fL (35.1-46.3); Red Blood Cell Count 3.72 M/mm3 (3.80-5.20); White Blood Cell Count 4.13 K/mm3 (4.00-11.30)
[2018-07-27 04:38] LABS: Anion Gap 6 mmol/L (6-16); Blood Urea Nitrogen 26 mg/dL (8-24); Bun/Creatinine Ratio 18.2 (12.0-20.0); CO2, Blood 25 mmol/L (21-32); Calcium, Blood 7.6 mg/dL (8.5-10.1); Chloride, Blood 116 mmol/L (98-108); Creatinine, Blood 1.43 mg/dL (0.40-1.00); Glomerular Filtration Rate 37 (60-); Glucose, Blood 205 mg/dL (70-99); Phosphorus, Blood 1.7 mg/dL (2.5-4.9); Potassium, Blood 4.4 mmol/L (3.5-5.5); Sodium, Blood 147 mmol/L (136-145)
--- NOTE | 2018-07-27 06:39 | NUR ---
SUMMARY PT INTERMITTENTLY RETCHING.RARE BT. FEET AND HANDS PUFFY.NOTED L EYE WITH SCANT CREME COLORED CRUSTING AND SURROUNDING TISSUE SLIGHTLY PINK.
--- NOTE | 2018-07-27 07:26 | NUR ---
CHEST TIGHTNESS, N/V PT IS CONTINUING TO HAVE NAUSEA WITH DRY HEAVES DESPITE PHENERGAN. SHE ALSO COMPLAINS OF CHEST TIGHTNESS. PT DENIES SOB. PT PLACED ON 1L O2. VS: BP156/75, HR 85, TEMP 98.6, RESP 20, O2 SAT 93% ON RA. PT WAS PLACED ON 1L O2. INDUSTRIAL GAS SERVICER HELPER NOTIFIED OF CHEST TIGHTNESS. DR. BEACH NOTIFIED OF CHEST TIGHTNESS, VS, N/V, ELEVATED SODIUM 147 AND ELEVATED CHLORIDE 116. IV FLUIDS CHANGED PER DR. BEACH, WILL MONITOR BP AND GIVE HYDRALAZINE PER ORDER IF BP REMAINS ELEVATED AFTER TREATING PAIN. EKG AND LABS ORDERED. PT REMAINS ALERT AND ORIENTED AT THIS TIME. WILL CONTINUE TO MONITOR.
--- NOTE | 2018-07-27 18:23 | NUR ---
SHIFT SUMMARY PT HAS BEEN NAUSEATED T/O THE SHIFT, PHENERGAN HAS HELPED TO MANAGE NAUSEA. PT APPEARS LESS NAUSEATED THIS EVENING. SHE TOLERATED 600ML OF CLEAR LIQUID AT DINNER TIME, NO INCREASED NAUSEA. PT REMAINS TENDER IN HER LLQ. PT IS ABLE TO REPOSITION HERSELF INDEPENDENTLY IN BED. VSS. WILL MONITOR UNTIL REPORT TO ONCOMING RN.
[2018-07-28 04:42] LABS: BASOPHILS ABSOLUTE AUTO 0.01 K/mm3 (0.00-0.23); BASOPHILS PERCENT AUTO 0 % (0-2); EOSINOPHILS ABSOLUTE AUTO 0.05 K/mm3 (0.00-0.68); EOSINOPHILS PERCENT AUTO 1 % (0-6); Hematocrit 34.5 % (33.0-51.0); IMMATURE GRAN ABSOLUTE AUTO 0.06 K/mm3 (0.00-0.10); IMMATURE GRAN PERCENT AUTO 1 % (0-1); LYMPHOCYTES PERCENT AUTO 16 % (21-46); MONOCYTES ABSOLUTE AUTO 0.81 K/mm3 (0.16-1.47); MONOCYTES PERCENT AUTO 16 % (4-13); Mean Corpuscular HGB 29.9 pg (26.0-34.0); Mean Corpuscular HGB Conc 31.9 g/dL (31.5-36.5); Mean Corpuscular Volume 94 fL (80-100); Mean Platelet Volume 10.4 fL (9.1-12.4); NEUTROPHILS PERCENT AUTO 66 % (41-73); Platelet Count 132 K/mm3 (150-400); RDW Coefficient Variation 12.8 % (11.7-14.2); RDW Standard Deviation 43.9 fL (35.1-46.3); Red Blood Cell Count 3.68 M/mm3 (3.80-5.20); White Blood Cell Count 5.13 K/mm3 (4.00-11.30)
[2018-07-28 05:00] LABS: Anion Gap 5 mmol/L (6-16); Blood Urea Nitrogen 26 mg/dL (8-24); Bun/Creatinine Ratio 18.8 (12.0-20.0); CO2, Blood 28 mmol/L (21-32); Calcium, Blood 7.4 mg/dL (8.5-10.1); Chloride, Blood 112 mmol/L (98-108); Creatinine, Blood 1.38 mg/dL (0.40-1.00); Glomerular Filtration Rate 39 (60-); Glucose, Blood 343 mg/dL (70-99); Phosphorus, Blood 1.4 mg/dL (2.5-4.9); Potassium, Blood 3.9 mmol/L (3.5-5.5); Sodium, Blood 145 mmol/L (136-145)
--- NOTE | 2018-07-28 07:31 | NUR ---
SUMMARY PT WAS REPORTED HAVING LITTLE NAUSEA DURING DAY AND WAS GIVEN REGULAR CLEAR LIQ TRAY. SUGARS HAVE BEEN CLIMBING. UP TO 405 INITIALLY THIS SHIFT. I CALLED AND NOTIFIED DR ZUNIGA. PT ALSO HAS CONTINUED WITH UNRETRACTABLE NAUSEA FOR WHICH Miller BUCHANAN RN OBTAINED ORDER FOR HALDOL X1 AND WAS GIVEN. PT VERBALIZING IMPROVEMENT ALTHOUGH NOT COMPLETELY GONE.
--- NOTE | 2018-07-28 16:35 | NUR ---
report phoned to Gareth Pardo RN. notified patients daughter Stephanie that patient is being transferred to 301. patient transferred via bed to 301
--- NOTE | 2018-07-28 18:01 | NUR ---
SHIFT SUMMARY: PATIENT TRANSFER FROM SURG 228 THIS SHIFT. PT A&O; CALM AND COOPERATIVE WITH CARE; VERY [place]; HX DEMENTIA. NO C/O PAIN SINCE ARRIVAL ON MEDICAL. PT ON O2 @ 2L; PT ON ROOM AIR AT [facility]. PT INCONTINENT OF BLADDER; ATTENDS IN PLACE; TURN Q2H; PT WHEELCHAIR BOUND AT BASELINE. 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 PT BEING FOLLOWED BY DR BAILEY. ARNAV.
[2018-07-29 04:36] LABS: BASOPHILS ABSOLUTE AUTO 0.02 K/mm3 (0.00-0.23); BASOPHILS PERCENT AUTO 0 % (0-2); EOSINOPHILS ABSOLUTE AUTO 0.16 K/mm3 (0.00-0.68); EOSINOPHILS PERCENT AUTO 3 % (0-6); Hematocrit 37.7 % (33.0-51.0); Hemoglobin 11.8 g/dL (11.5-16.0); IMMATURE GRAN ABSOLUTE AUTO 0.06 K/mm3 (0.00-0.10); IMMATURE GRAN PERCENT AUTO 1 % (0-1); LYMPHOCYTES ABSOLUTE AUTO 1.43 K/mm3 (0.84-5.20); LYMPHOCYTES PERCENT AUTO 26 % (21-46); MONOCYTES ABSOLUTE AUTO 0.89 K/mm3 (0.16-1.47); MONOCYTES PERCENT AUTO 16 % (4-13); Mean Corpuscular HGB 30.1 pg (26.0-34.0); Mean Corpuscular HGB Conc 31.3 g/dL (31.5-36.5); Mean Corpuscular Volume 96 fL (80-100); Mean Platelet Volume 10.2 fL (9.1-12.4); NEUTROPHILS ABSOLUTE AUTO 2.87 K/mm3 (1.96-9.15); NEUTROPHILS PERCENT AUTO 53 % (41-73); Platelet Count 126 K/mm3 (150-400); RDW Coefficient Variation 12.8 % (11.7-14.2); RDW Standard Deviation 45.2 fL (35.1-46.3); Red Blood Cell Count 3.92 M/mm3 (3.80-5.20); White Blood Cell Count 5.43 K/mm3 (4.00-11.30)
[2018-07-29 04:53] LABS: Albumin, Blood 3.1 g/dL (3.4-5.0); Anion Gap 5 mmol/L (6-16); Blood Urea Nitrogen 23 mg/dL (8-24); CO2, Blood 31 mmol/L (21-32); Calcium, Blood 7.8 mg/dL (8.5-10.1); Chloride, Blood 109 mmol/L (98-108); Creatinine, Blood 1.35 mg/dL (0.40-1.00); Glomerular Filtration Rate 40 (60-); Glucose, Blood 126 mg/dL (70-99); Phosphorus, Blood 2.2 mg/dL (2.5-4.9); Potassium, Blood 3.2 mmol/L (3.5-5.5); Sodium, Blood 145 mmol/L (136-145)
--- NOTE | 2018-07-29 18:06 | NUR ---
END OF SHIFT SUMMARY: PATIENT FATIGUED THROUGHOUT THE SHIFT. PATIENT SLEPT MUCH OF THE DAY. EASILY AROUSABLE BY STATING HER NAME LOUDLY. PATIENT NAUSEATED THROUGHOUT THE SHIFT. DURING THE MORNING HALF OF THE DAY, PATIENT DRY HEAVING AND INTERMITTANTLY THROWING UP. MEDICATED TWICE WITH PHENERGHAN. BOTH TIMES OFFERED RELIEF TO THE PATIENT. PATIENT HAS A MINIMAL APPETITE. ADVANCED TO CLEAR LIQUID FOR DINNER. MINIMAL INTAKE. THIS MORNING, PATIENT REPORTED CHEST PAIN LIKE "SOMEONE SITTING ON HER CHEST". NOTIFIED DR. MODI, NEW ORDERS RECEIVED. EKG MATCHED ADMITTING EKG, TROPONIN WAS NEGATIVE, AND VITALS STABLE. CHEST XRAY AND ABDOMINAL CT COMPLETED IN THE AFTERNOON. DR. MODI AWARE OF THE RESULTS. PATIENT DENIED CHEST PAIN FOR THE REST OF THE SHIFT.
[2018-07-30 06:19] LABS: BASOPHILS ABSOLUTE AUTO 0.02 K/mm3 (0.00-0.23); BASOPHILS PERCENT AUTO 0 % (0-2); EOSINOPHILS ABSOLUTE AUTO 0.04 K/mm3 (0.00-0.68); EOSINOPHILS PERCENT AUTO 1 % (0-6); Hematocrit 40.6 % (33.0-51.0); Hemoglobin 12.9 g/dL (11.5-16.0); IMMATURE GRAN ABSOLUTE AUTO 0.06 K/mm3 (0.00-0.10); IMMATURE GRAN PERCENT AUTO 1 % (0-1); LYMPHOCYTES ABSOLUTE AUTO 1.76 K/mm3 (0.84-5.20); LYMPHOCYTES PERCENT AUTO 30 % (21-46); MONOCYTES ABSOLUTE AUTO 0.79 K/mm3 (0.16-1.47); MONOCYTES PERCENT AUTO 13 % (4-13); Mean Corpuscular HGB Conc 31.8 g/dL (31.5-36.5); Mean Corpuscular Volume 94 fL (80-100); Mean Platelet Volume 10.4 fL (9.1-12.4); NEUTROPHILS ABSOLUTE AUTO 3.21 K/mm3 (1.96-9.15); NEUTROPHILS PERCENT AUTO 55 % (41-73); Platelet Count 135 K/mm3 (150-400); RDW Coefficient Variation 12.9 % (11.7-14.2); RDW Standard Deviation 43.8 fL (35.1-46.3); White Blood Cell Count 5.88 K/mm3 (4.00-11.30)
[2018-07-30 06:31] LABS: Albumin, Blood 3.3 g/dL (3.4-5.0); Anion Gap 7 mmol/L (6-16); Blood Urea Nitrogen 18 mg/dL (8-24); Bun/Creatinine Ratio 15.8 (12.0-20.0); CO2, Blood 29 mmol/L (21-32); Calcium, Blood 7.8 mg/dL (8.5-10.1); Chloride, Blood 106 mmol/L (98-108); Creatinine, Blood 1.14 mg/dL (0.40-1.00); Glomerular Filtration Rate 49 (60-); Glucose, Blood 232 mg/dL (70-99); Phosphorus, Blood 2.1 mg/dL (2.5-4.9); Potassium, Blood 3.9 mmol/L (3.5-5.5); Sodium, Blood 142 mmol/L (136-145)
--- NOTE | 2018-07-30 11:48 | NUR ---
PATIENT REPORTS THAT SHE IS FEELING BETTER THIS MORNING BUT THAT SHE "ONLY WANTS TO REST". PATIENT HAS NO APPETITE. PATIENT DENIES NAUSEA. HOWEVER, AFTER TAKING PILLS WITH WATER, PATIENT HAS MANY BURPS AND FEELS UNCOMFORTABLE. PATIENT HAS INCREASED STRENGTH IN ARMS AND LEGS TODAY. SHE IS ABLE TO ROLL TO THE SIDE MOSTLY INDEPEDENTLY USING THE SIDE RAILS. ABLE TO LIFT LEGS HIGH ENOUGH TO PLACE PILLOW UNDER HER LEGS.
[2018-07-30] MEDS ORDERED: VOLTAREN100 GM TOP (17:19)
[2018-07-30] MEDS ORDERED: MYLANTA (17:24)
[2018-07-30] MEDS ORDERED: NITR.4SL SL (17:25)
--- NOTE | 2018-07-30 18:35 | NUR ---
PATIENT MADE SIGNIFICANT IMPROVEMENTS TODAY WITH MOBILITY, ORIENTATION, AND NAUSEA. PATIENT DID NOT REQUIRE ANY ANTI-NAUSEA MEDICATION TODAY. PATIENT ABLE TO PERFORM SMALL LEG LIFTS. PATIENT HAD INCREASED COMMUNICATION INTERACTION WITH THE NURSES AND WAS LAUGHING WITH THE STAFF BY THE END OF THE SHIFT. BY THE END OF THE SHIFT, PATIENT FELT WELL ENOUGH TO SIT UP IN A CHAIR. TOLERATED JOEL LIFT WELL. TOLERATED JELLO WELL AND REQUESTED FULL LIQUID DIET. DISCUSSED THIS WITH DR. BARBOSA, NEW ORDER FOR FULL LIQUID DIET. PATIENT TOLERATING WELL AND REQUESTING SPECIFIC ITEMS. PATIENT PASSED SOFT BOWEL MOVEMENTS TODAY WITHOUT DIFFICULTY.
--- NOTE | 2018-07-31 05:02 | NUR ---
PRN HYDRALAZINE RECIEVED FOR SBP>150 PER PARAMETERS.
--- NOTE | 2018-07-31 05:41 | NUR ---
SUMMARY: A/OX2-3, FORGTFULL AT TIMES AND COOPERATIVE W/CARE. TURN SCHEDULE WAS MAINTAINDED D/T DECONDITIONING AND PT IS W/C BOUND AT BASELING REQUIRING JOEL LIFT OOB. PT DENIED COMPLAINTS/CONCERNS AND DIDN'T NEED PRN PAIN OR NAUSEA MEDS. SHE TOLERATED FULL LIQ DIET AND ATTENDS CHANGE PRN FOR URINARY INCONTINENCE. PRN HYDRALAZINE WAS RECIEVED FOR SBP>150 THIS AM, WILL ASSESS FOR EFFECT. NS W/KCL INFUSES TO MAGDALENO POWERGLIDE, IV ABX RECIEVED. PREVENTATIV MEPILEXES INTACT TO HEELS THAT ARE FLOATED ON PILLOWS. NO ACUTE CHANGES, VSS AND AFEBRILE. WCTM AND REPORT TO DAY RN.
[2018-07-31 05:42] LABS: BASOPHILS ABSOLUTE AUTO 0.02 K/mm3 (0.00-0.23); BASOPHILS PERCENT AUTO 0 % (0-2); EOSINOPHILS ABSOLUTE AUTO 0.06 K/mm3 (0.00-0.68); EOSINOPHILS PERCENT AUTO 1 % (0-6); Hematocrit 36.7 % (33.0-51.0); Hemoglobin 11.8 g/dL (11.5-16.0); IMMATURE GRAN ABSOLUTE AUTO 0.11 K/mm3 (0.00-0.10); IMMATURE GRAN PERCENT AUTO 2 % (0-1); LYMPHOCYTES ABSOLUTE AUTO 1.62 K/mm3 (0.84-5.20); LYMPHOCYTES PERCENT AUTO 27 % (21-46); MONOCYTES ABSOLUTE AUTO 0.86 K/mm3 (0.16-1.47); MONOCYTES PERCENT AUTO 14 % (4-13); Mean Corpuscular HGB 29.9 pg (26.0-34.0); Mean Corpuscular HGB Conc 32.2 g/dL (31.5-36.5); Mean Corpuscular Volume 93 fL (80-100); Mean Platelet Volume 10.5 fL (9.1-12.4); NEUTROPHILS ABSOLUTE AUTO 3.31 K/mm3 (1.96-9.15); NEUTROPHILS PERCENT AUTO 55 % (41-73); Platelet Count 134 K/mm3 (150-400); RDW Coefficient Variation 12.9 % (11.7-14.2); RDW Standard Deviation 43.3 fL (35.1-46.3); Red Blood Cell Count 3.94 M/mm3 (3.80-5.20); White Blood Cell Count 5.98 K/mm3 (4.00-11.30)
[2018-07-31 06:03] LABS: Albumin, Blood 3.1 g/dL (3.4-5.0); Bilirubin, Total 0.7 mg/dL (0.1-1.0); Bun/Creatinine Ratio 15.2 (12.0-20.0); Calcium, Blood 7.7 mg/dL (8.5-10.1); Creatinine, Blood 1.12 mg/dL (0.40-1.00); Globulin, Blood 3.1 g/dL (2.2-4.0); Potassium, Blood 3.4 mmol/L (3.5-5.5); Total Protein, Blood 6.2 g/dL (6.4-8.2)
[2018-07-31] MEDS ORDERED: Milk Of Ma400 MG/5 M PO (11:43)
[2018-07-31] MEDS ORDERED: Refresh Liquige15 ML BOTHEYES ×2 (11:46→11:48)
[2018-07-31] MEDS ORDERED: AMOCLA500 PO (11:49)
--- NOTE | 2018-07-31 12:47 | NUR ---
LUNCH TIME CBG 427 REPORTED TO MD. NO NEW ORDERS GIVEN. PATIENT IS UP TO CHAIR EATING LUNCH WITH NO S/S OF HYPER/HYPO GLYCEMIA.
--- NOTE | 2018-07-31 14:43 | NUR ---
PER PT THIS AM PATIENT IS A 2 PERSON MAX ASSIST FOR STAND PIVOT TRANSFERS FROM BED TO CHAIR. THIS NURSE SPOKE WITH ALLY CLEMONS FROM [facility] WHO STATES THEIR PREFERENCE WOULD BE FOR PATIENT TO BE BACK AT BASELINE FOR RETURN WHICH IS A 1 PERSON STAND BY ASSIST. THIS NURSE TRANSFERED PATIENT FROM CHAIR BACK TO BED WITH ASSIST OF FUEL CELL ASSEMBLER AND PATIENT WAS A MAX ASSIST WITH 2 AND GAIT BELT. PATIENT WAS ALSO INC OF STOOL AND NEEDED X 2 ASSIST WITH CHANGING AND TURNING. PATIENT IS NOW RESTING IN BED WITH CALL LIGHT IN REACH.
--- NOTE | 2018-07-31 17:31 | NUR ---
SHIFT SUMMARY: PATIENT IS ALERT X 2-3 WITH CONFUSION THROUGHOUT THIS SHIFT. PATIENT CONTINUES TO BE A MAX 2 PERSON ASSIST WITH NURSING TRANSFERS THIS SHIFT. IV ABO INFUSED ORDERED WITH NO ISSUE AND POWER GLIDE IS PATENT TO [facility]OH[facility]. PATIENT CONTINUES TO WORK WITH THERAPIES AND IS COMPLIANT WITH CARE. CBGS HAVE BEEN COVERED WITH ORDERED SLIDING SCALE. PATIENT IS RESTING IN BED WITH CALL LIGHT IN REACH.
--- NOTE | 2018-07-31 18:27 | NUR ---
[facility] NOT TAKING PT TODAY BECAUSE PHYSICAL THERAPY NOTED THAT PT WAS A TWO PERSON ASSIST AND ON FULL LIQUID DIET. OT WORKED WITH PT AND MIMICED TRANSFER POLE IN ROOM AND PT WAS AT BASELINE MOD A ASSIST. DR. BARBOSA NOTIFIED THAT THE PT WAS NOT ABLE TO DC TODAY BUT SHOULD BE ABLE TO TOMORROW. ORDER RECIEVED FOR ADVANCE DIET TOLERATED.
--- NOTE | 2018-07-31 22:32 | NUR ---
STOOL SPECIMEN OBTAINED AND R/O C.DIFF RX OBTAINED FROM [facility] AT THIS TIME. PT ALREADY IN CONTACT ISOLATION. SHE HAS HAD MULTIPLE UNFORMED BM'S WHICH BEGAN EARLIER TODAY AND HAS BEEN ON IV ABX THIS ADMISSION. WILL AWAIT RESULTS.
--- NOTE | 2018-08-01 04:56 | NUR ---
SUMMARY: PT A/OX2-3, IS NEWHALEN AND SPECIFIES NEEDS APPROPRIATELY WHEN STAFF IN ROOM BUT OTHERWISE DOESN'T CALL FOR ASSIST. SHE WAS INCONTINENT T/O NOCTE W/ ATTENDS CHANGED PRN. PT HAD X2 UNFORMED BM'S W/STOOL SPECIMEN OBTAINED AND SENT, C.DIFF (-). IV ABX RECIEVED AND MAINTENANCE IVF INFUSING. TURN SCHEDULE MAINTAINED AND PT IS W/C BOUND AT HOME W/2 ASSIST REQUIRED OOB VIA T/F BAR USE PER BASELINE. PT LACKED APPETITE T/O NOCTE BUT IS ADA DIET NOW AND WILL D/C BACK TO [place] TODAY W/ORDERS IN PLACE. PT DENIED COMPLAINTS THIS SHIFT. VSS/AFEBRILE AND NO ACUTE CHANGES. CBG'S CONT ELEVATED W/INSULIN RECIEVED PER EMAR. WCTM AND REPORT TO DAY RN.
--- NOTE | 2018-08-01 10:39 | NUR ---
SPOKE WITH DEONTE AT [facility] AND GAVE UPDATE, SHE REPORTED THAT THE WILL ACCEPT THE PT TODAY. [facility] W/C TRANSPORTATION SET UP FOR 1200. D/C ORDERS FAXED TO [facility].
--- NOTE | 2018-08-01 12:16 | NUR ---
PATIENT DCD HOME TO [facility] VIA [facility] WITH W/C TRANSPORT. PATIENT LUNCH TIME CBG WAS 417 AND WAS COVERED WITH SLIDING SCALE ORDERED. [facility] WAS NOTIFIED AND THEY STATED THEY WOULD PROVIDE LUNCH UPON HER ARRIVAL. PATIENT WAS STABLE AND ALERT TO BASELINE ON TRANSPORT. ALL BELONGONGS AND DC ORDERS WERE SENT WITH PATIENT AND ORDERS WERE ALSO FAXED TO [facility]. IV TO [place] WAS REMOVED WITH NO ISSUE.
== END 2018-08-01 12:10 | disposition home or self-care (01) | DRG 391 ==
LOC: DELPENDDIS → ER 23:44 → ICUW 07-25 04:59 → SURS 07-25 04:59 → ICUW 07-25 05:04 → SURS 07-25 15:18 → MEDS 07-28 17:00 → ENPENDDIS 07-31 11:12 → MEDS 08-01 12:10
PROVIDERS: Family Medicine; Internal Medicine; Physician Assistant; ADMIT Hospitalist
DX: K57.32 Diverticulitis of large intestine without perforation or abscess without bleeding (principal); J18.9 Pneumonia, unspecified organism; N18.4 Chronic kidney disease, stage 4 (severe); I50.32 Chronic diastolic (congestive) heart failure; I13.0 Hypertensive heart and chronic kidney disease with heart failure and stage 1 through stage 4 chronic kidney disease, or unspecified chronic kidney disease; E87.1 Hypo-osmolality and hyponatremia; I25.10 Atherosclerotic heart disease of native coronary artery without angina pectoris; F03.90 Unspecified dementia, unspecified severity, without behavioral disturbance, psychotic disturbance, mood disturbance, and anxiety; E03.9 Hypothyroidism, unspecified; E11.649 Type 2 diabetes mellitus with hypoglycemia without coma; E87.6 Hypokalemia; E83.39 Other disorders of phosphorus metabolism; D69.6 Thrombocytopenia, unspecified; F32.9 Major depressive disorder, single episode, unspecified; Z66 Do not resuscitate; E87.5 Hyperkalemia; K21.9 Gastro-esophageal reflux disease without esophagitis; Z89.421 Acquired absence of other right toe(s); Z89.021 Acquired absence of right finger(s); Z88.8 Allergy status to other drugs, medicaments and biological substances; Z79.02 Long term (current) use of antithrombotics/antiplatelets; Z79.82 Long term (current) use of aspirin; Z79.4 Long term (current) use of insulin; Z79.899 Other long term (current) drug therapy
CPT/HCPCS: 36415; 71045; 71046; 74176; 80048; 80053; 80069; 81001; 82947; 83605; 83690; 83880; 84484; 85025; 87040; 87081; 87493; 93005; 93010; 96365; 97110; 97162; 97166; 97530; 99285-25; C1751; J0360; J0696; J1630; J1644; J1815; J1940; J2550; J3010; J3480; J7030; J7050; J7060; P9612

== ENCOUNTER 2018-08-01 14:57 | Emergency (ER) | payer OTHER ==
[~2018-08-01] VITALS: Ht 162.6 cm; Wt 90.7 kg
[~2018-08-01 14:57] MED LIST changes: +AMOCLA500 PO; +Refresh Liquige15 ML BOTHEYES; +VOLTAREN100 GM TOP
== END 2018-08-01 17:11 | disposition home or self-care (01) ==
LOC: ER 14:57
DX: S80.02XA Contusion of left knee, initial encounter (principal); S80.01XA Contusion of right knee, initial encounter; M25.552 Pain in left hip; M25.551 Pain in right hip; F03.90 Unspecified dementia, unspecified severity, without behavioral disturbance, psychotic disturbance, mood disturbance, and anxiety; W19.XXXA Unspecified fall, initial encounter; E11.22 Type 2 diabetes mellitus with diabetic chronic kidney disease; I13.0 Hypertensive heart and chronic kidney disease with heart failure and stage 1 through stage 4 chronic kidney disease, or unspecified chronic kidney disease; I50.9 Heart failure, unspecified; N18.9 Chronic kidney disease, unspecified; K21.9 Gastro-esophageal reflux disease without esophagitis; E03.9 Hypothyroidism, unspecified; Z79.899 Other long term (current) drug therapy; Z79.4 Long term (current) use of insulin; Z79.82 Long term (current) use of aspirin
CPT/HCPCS: 73522; 73562-LT; 73562-RT; 99283-25

== ENCOUNTER → 2018-08-16 | Outpatient (CLI) | payer OTHER ==
[~2018-08-16] MED LIST changes: +Artificial Tea1 EACH BOTHEYES; +Augmentin 875-1 EACH PO; +Bumetanide2 MG PO; +PANT20 PO
[2018-08-16 11:44] LABS: Appearance, Urine Clear (Clear); Bilirubin, Urine Neg (Neg); Blood, Urine Neg (Neg); Color, Urine Yellow (P-Yellow); Glucose Qualitative, Urine Neg (Neg); Ketones, Urine Neg (Neg); Leukocyte Esterase, Urine Neg (Neg); Nitrite, Urine Neg (Neg); Protein, Urine Neg (Neg); Urobilinogen, Urine NORM (Normal)
== END | disposition home or self-care (01) ==
LOC: LAB SHORT 11:30 → LAB 11:30
PROVIDERS: Nurse Practitioner Family
DX: N39.0 Urinary tract infection, site not specified (principal)
CPT/HCPCS: 81003

== ENCOUNTER 2018-08-23 13:41 | Emergency (ER) | payer OTHER ==
[~2018-08-23] VITALS: Ht 165.1 cm; Wt 99.8 kg
[~2018-08-23 13:41] MED LIST changes: -Artificial Tea1 EACH BOTHEYES; -Augmentin 875-1 EACH PO; -Bumetanide2 MG PO; -PANT20 PO
[2018-08-23] MEDS ORDERED: Artificial Tea1 EACH BOTHEYES (14:00)
[2018-08-23] MEDS ORDERED: Bumetanide2 MG PO (14:01)
[2018-08-23] MEDS ORDERED: FLUO10 PO (14:02)
[2018-08-23] MEDS ORDERED: TRAM50 PO (14:04)
[2018-08-23 14:35] LABS: BASOPHILS ABSOLUTE AUTO 0.02 K/mm3 (0.00-0.23); BASOPHILS PERCENT AUTO 0 % (0-2); EOSINOPHILS PERCENT AUTO 1 % (0-6); Hematocrit 40.3 % (33.0-51.0); IMMATURE GRAN ABSOLUTE AUTO 0.13 K/mm3 (0.00-0.10); IMMATURE GRAN PERCENT AUTO 2 % (0-1); LYMPHOCYTES ABSOLUTE AUTO 2.86 K/mm3 (0.84-5.20); LYMPHOCYTES PERCENT AUTO 38 % (21-46); MONOCYTES ABSOLUTE AUTO 0.72 K/mm3 (0.16-1.47); MONOCYTES PERCENT AUTO 10 % (4-13); Mean Corpuscular HGB 30.4 pg (26.0-34.0); Mean Corpuscular HGB Conc 32.3 g/dL (31.5-36.5); Mean Corpuscular Volume 94 fL (80-100); Mean Platelet Volume 10.3 fL (9.1-12.4); NEUTROPHILS ABSOLUTE AUTO 3.69 K/mm3 (1.96-9.15); NEUTROPHILS PERCENT AUTO 49 % (41-73); Platelet Count 151 K/mm3 (150-400); RDW Coefficient Variation 14.1 % (11.7-14.2); RDW Standard Deviation 48.6 fL (35.1-46.3); Red Blood Cell Count 4.27 M/mm3 (3.80-5.20); White Blood Cell Count 7.52 K/mm3 (4.00-11.30)
[2018-08-23 14:55] LABS: Albumin, Blood 3.9 g/dL (3.4-5.0); Albumin/Globulin Ratio 0.9 (0.8-1.8); Bilirubin, Total 0.9 mg/dL (0.1-1.0); Bun/Creatinine Ratio 19.9 (12.0-20.0); Calcium, Blood 8.9 mg/dL (8.5-10.1); Creatinine, Blood 1.91 mg/dL (0.40-1.00); Globulin, Blood 4.3 g/dL (2.2-4.0); Potassium, Blood 4.5 mmol/L (3.5-5.5); Total Protein, Blood 8.2 g/dL (6.4-8.2)
[2018-08-23 15:26] LABS: Source, Urine Catheter
[2018-08-23 15:34] LABS: Bilirubin, Urine Neg (Neg); Blood, Urine Neg (Neg); Glucose Qualitative, Urine Neg (Neg); Ketones, Urine Neg (Neg); Leukocyte Esterase, Urine Neg (Neg); Nitrite, Urine Neg (Neg); Protein, Urine Neg (Neg); Urobilinogen, Urine NORM (Normal); pH, Urine 6.5 (5.0-8.0)
[2018-08-23 15:41] LABS: Appearance, Urine Clear (Clear); Color, Urine Yellow (P-Yellow)
[2018-08-23] MEDS ORDERED: PROM25 PO (16:33)
[2018-08-23] MEDS ORDERED: Augmentin 875-1 EACH PO (16:33)
== END 2018-08-23 20:27 | disposition home or self-care (01) ==
LOC: ER 13:41
PROVIDERS: Emergency Medicine
DX: R10.13 Epigastric pain (principal); R11.0 Nausea; F03.90 Unspecified dementia, unspecified severity, without behavioral disturbance, psychotic disturbance, mood disturbance, and anxiety; I11.0 Hypertensive heart disease with heart failure; I50.9 Heart failure, unspecified; E11.40 Type 2 diabetes mellitus with diabetic neuropathy, unspecified; M10.9 Gout, unspecified; K21.9 Gastro-esophageal reflux disease without esophagitis; E03.9 Hypothyroidism, unspecified; F41.9 Anxiety disorder, unspecified; F32.9 Major depressive disorder, single episode, unspecified; Z88.1 Allergy status to other antibiotic agents; Z88.8 Allergy status to other drugs, medicaments and biological substances; Z79.82 Long term (current) use of aspirin; Z79.899 Other long term (current) drug therapy; Z79.4 Long term (current) use of insulin; Z87.440 Personal history of urinary (tract) infections
CPT/HCPCS: 36415; 51701; 74176; 80053; 81003; 83690; 85025; 93005; 93010; 96361; 96365-59; 96375-59; 99284-25; J0295; J2543; J2550; J7120

== ENCOUNTER 2018-08-26 13:46 | Emergency (ER) | payer OTHER ==
[~2018-08-26] VITALS: Ht 162.6 cm; Wt 104.3 kg
[~2018-08-26 13:46] MED LIST changes: +Artificial Tea1 EACH BOTHEYES; +Augmentin 875-1 EACH PO; +Bumetanide2 MG PO
[2018-08-26 14:15] LABS: BASOPHILS ABSOLUTE AUTO 0.05 K/mm3 (0.00-0.23); BASOPHILS PERCENT AUTO 1 % (0-2); EOSINOPHILS ABSOLUTE AUTO 0.02 K/mm3 (0.00-0.68); EOSINOPHILS PERCENT AUTO 0 % (0-6); Hematocrit 46.6 % (33.0-51.0); Hemoglobin 14.6 g/dL (11.5-16.0); IMMATURE GRAN ABSOLUTE AUTO 0.13 K/mm3 (0.00-0.10); IMMATURE GRAN PERCENT AUTO 2 % (0-1); LYMPHOCYTES ABSOLUTE AUTO 0.96 K/mm3 (0.84-5.20); LYMPHOCYTES PERCENT AUTO 14 % (21-46); MONOCYTES ABSOLUTE AUTO 0.56 K/mm3 (0.16-1.47); MONOCYTES PERCENT AUTO 8 % (4-13); Mean Corpuscular HGB Conc 31.3 g/dL (31.5-36.5); Mean Platelet Volume 10.3 fL (9.1-12.4); NEUTROPHILS ABSOLUTE AUTO 5.38 K/mm3 (1.96-9.15); NEUTROPHILS PERCENT AUTO 76 % (41-73); Platelet Count 139 K/mm3 (150-400); RDW Coefficient Variation 14.2 % (11.7-14.2); RDW Standard Deviation 51.4 fL (35.1-46.3); Red Blood Cell Count 4.71 M/mm3 (3.80-5.20)
[2018-08-26 14:27] LABS: Mean Corpuscular Volume 99 fL (80-100)
[2018-08-26 14:49] LABS: Albumin, Blood 3.9 g/dL (3.4-5.0); Albumin/Globulin Ratio 0.9 (0.8-1.8); Bun/Creatinine Ratio 19.8 (12.0-20.0); Calcium, Blood 8.8 mg/dL (8.5-10.1); Creatinine, Blood 2.02 mg/dL (0.40-1.00); Globulin, Blood 4.4 g/dL (2.2-4.0); Potassium, Blood 4.5 mmol/L (3.5-5.5); Total Protein, Blood 8.3 g/dL (6.4-8.2)
== END 2018-08-26 16:41 | disposition home or self-care (01) ==
LOC: ER 13:46
PROVIDERS: Emergency Medicine
DX: R10.9 Unspecified abdominal pain (principal); E11.40 Type 2 diabetes mellitus with diabetic neuropathy, unspecified; I11.0 Hypertensive heart disease with heart failure; I50.9 Heart failure, unspecified; F41.9 Anxiety disorder, unspecified; F32.9 Major depressive disorder, single episode, unspecified; Z88.1 Allergy status to other antibiotic agents; Z88.8 Allergy status to other drugs, medicaments and biological substances; Z79.82 Long term (current) use of aspirin; Z79.899 Other long term (current) drug therapy; Z79.4 Long term (current) use of insulin
CPT/HCPCS: 36415; 74176; 80053; 83690; 85025; 93005; 93010; 99284-25

== ENCOUNTER 2018-11-09 02:38 | Inpatient (IN) | payer OTHER ==
[~2018-11-09] VITALS: Ht 167.6 cm; Wt 84.1 kg
[2018-11-09 03:11] LABS: BASOPHILS ABSOLUTE AUTO 0.02 K/mm3 (0.00-0.23); BASOPHILS PERCENT AUTO 0 % (0-2); EOSINOPHILS ABSOLUTE AUTO 0.03 K/mm3 (0.00-0.68); EOSINOPHILS PERCENT AUTO 0 % (0-6); Hematocrit 45.2 % (33.0-51.0); Hemoglobin 15.4 g/dL (11.5-16.0); IMMATURE GRAN ABSOLUTE AUTO 0.22 K/mm3 (0.00-0.10); IMMATURE GRAN PERCENT AUTO 1 % (0-1); LYMPHOCYTES ABSOLUTE AUTO 1.02 K/mm3 (0.84-5.20); LYMPHOCYTES PERCENT AUTO 6 % (21-46); MONOCYTES ABSOLUTE AUTO 2.73 K/mm3 (0.16-1.47); MONOCYTES PERCENT AUTO 15 % (4-13); Mean Corpuscular HGB 30.8 pg (26.0-34.0); Mean Corpuscular HGB Conc 34.1 g/dL (31.5-36.5); Mean Corpuscular Volume 90 fL (80-100); Mean Platelet Volume 10.7 fL (9.1-12.4); NEUTROPHILS ABSOLUTE AUTO 14.21 K/mm3 (1.96-9.15); NEUTROPHILS PERCENT AUTO 78 % (41-73); Platelet Count 177 K/mm3 (150-400); RDW Coefficient Variation 13.3 % (11.7-14.2); RDW Standard Deviation 43.7 fL (35.1-46.3); White Blood Cell Count 18.23 K/mm3 (4.00-11.30)
[2018-11-09 03:29] LABS: Albumin, Blood 3.5 g/dL (3.4-5.0); Albumin/Globulin Ratio 0.8 (0.8-1.8); Bilirubin, Total 1.3 mg/dL (0.1-1.0); Calcium, Blood 9.4 mg/dL (8.5-10.1); Creatinine, Blood 1.65 mg/dL (0.40-1.00); Globulin, Blood 4.6 g/dL (2.2-4.0); Potassium, Blood 4.5 mmol/L (3.5-5.5); Total Protein, Blood 8.1 g/dL (6.4-8.2)
--- NOTE | 2018-11-09 15:09 | NUR ---
PT TO DAY SURGERY AT THIS TIME
--- NOTE | 2018-11-09 15:20 | NUR ---
History, Chart, Medications and Allergies reviewed before start of procedure. Lungs clear with decrease bases. Patient confirms NPO status and agrees with scheduled surgery.
--- NOTE | 2018-11-09 16:18 | NUR ---
SHIFT SUMMARY NEW ER ADMIT TODAY FOR RAJ. PT IS ALERT AND ORIENTED TO SELF AND FAMILY, BUT IS CONFUSED AND HAS A HX OF DEMENTIA. PT IS VERY HARD OF HEARING. PT WAS NAUSEATED WITH DRY HEAVES AND DID HAVE EMESIS X1. PT COMFORT 12.5MG IV PHENERGAN. PT DENIED PAIN. PT LIVES AT [facility] AND MASK INSPECTOR REPORTS PT IS W/C BOUND AT BASELINE. 2 MODERATE ASSIST WHILE TURNING PT IN BED. ATTENDS CHANGED PRN FOR INCONTINENCE OF URINE AND STOOL. PT IS CURRENTLY IN THE OR. DAUGHTER WAS AT BEDSIDE FOR SUPPORT. BED ALARM WAS IN PLACE BEFORE PT TAKEN TO OR ON BED.
--- NOTE | 2018-11-09 17:58 | NUR ---
POST OP S/P LAP RAJ. LAP SITES WITH STERI STRIPS TO ABD X3 ARE CDI. LILIANA DRAIN TO RLQ. PT DENIES PAIN. POST OP VS IN PROGRESS AND STABLE. ATTENDS DRY. IVF INFUSING PER ORDERS. TELE PLACED. DAUGHTER AT BEDSIDE FOR SUPPORT. CALL LIGHT WITHIN REACH.
--- NOTE | 2018-11-10 03:38 | NUR ---
0322: PT TOLERATING ICE CHIPS BUT C/O MILD NAUSEA AND HAS APPROXIMATELY 50ML BROWN EMESIS AFTER TAKING PO TYLENOL AND SMALL JELLO. PT INTERMITTENLY CRYING OUT AND MOANING; MEDICATED WITH 5O MCG IV FENTANYL AND 25MG TOTAL IV PHENERGAN. PT RESTING WITH HOB ELEVATED AND EMESIS BAG IN REACH.
[2018-11-10 04:23] LABS: BASOPHILS ABSOLUTE AUTO 0.02 K/mm3 (0.00-0.23); BASOPHILS PERCENT AUTO 0 % (0-2); EOSINOPHILS ABSOLUTE AUTO 0.01 K/mm3 (0.00-0.68); EOSINOPHILS PERCENT AUTO 0 % (0-6); Hematocrit 41.4 % (33.0-51.0); Hemoglobin 13.3 g/dL (11.5-16.0); IMMATURE GRAN ABSOLUTE AUTO 0.29 K/mm3 (0.00-0.10); IMMATURE GRAN PERCENT AUTO 2 % (0-1); LYMPHOCYTES ABSOLUTE AUTO 1.14 K/mm3 (0.84-5.20); LYMPHOCYTES PERCENT AUTO 7 % (21-46); MONOCYTES ABSOLUTE AUTO 2.13 K/mm3 (0.16-1.47); MONOCYTES PERCENT AUTO 13 % (4-13); Mean Corpuscular HGB 29.9 pg (26.0-34.0); Mean Corpuscular HGB Conc 32.1 g/dL (31.5-36.5); Mean Corpuscular Volume 93 fL (80-100); Mean Platelet Volume 10.3 fL (9.1-12.4); NEUTROPHILS ABSOLUTE AUTO 13.34 K/mm3 (1.96-9.15); NEUTROPHILS PERCENT AUTO 79 % (41-73); Platelet Count 156 K/mm3 (150-400); RDW Coefficient Variation 13.7 % (11.7-14.2); Red Blood Cell Count 4.45 M/mm3 (3.80-5.20); White Blood Cell Count 16.93 K/mm3 (4.00-11.30)
[2018-11-10 04:37] LABS: International Normalized Ratio 1.08; Prothrombin Time Results 11.4 Sec (9.7-11.5)
[2018-11-10 04:44] LABS: Albumin, Blood 3.1 g/dL (3.4-5.0); Albumin/Globulin Ratio 0.8 (0.8-1.8); Bilirubin, Total 1.1 mg/dL (0.1-1.0); Bun/Creatinine Ratio 22.3 (12.0-20.0); Calcium, Blood 8.6 mg/dL (8.5-10.1); Creatinine, Blood 1.79 mg/dL (0.40-1.00); Potassium, Blood 3.6 mmol/L (3.5-5.5); Total Protein, Blood 7.1 g/dL (6.4-8.2)
--- NOTE | 2018-11-10 05:09 | NUR ---
SUMMARY: POD [address] ROD. VSS, AFEBRILE. LOW GRADE TEMP AND ENCOURAGED TO TCDB; PT DEMONSTRATES WITH WEAK EFFORT. NAUSEA PERSISTS AND PT CONTINUES ICE CHIPS ONLY. ABD APPEARS MODERATELY DISTENDED BUT SOFT WITH HYPOACTIVE BOWEL TONES. RLQ ABD LILIANA DRAIN 100ML SANGINOUS OUTPUT. PT INCONTINENT URINE, ATTENDS IN PLACE, REPOSITIONED FOR COMFORT. CONTINUE TO MANAGE N/V AND PAIN.
--- NOTE | 2018-11-10 07:35 | NUR ---
pt awake occ dry heaves daughter at bedside updated her on pt's night absent b/t's discussed with pt will monitor if she has lg amt of emesis at any point will req ngt pt only having small amt of ice chips
--- NOTE | 2018-11-10 10:05 | NUR ---
fent 25 mcg given pain 8/10 after movement linen change attends change pt had small bm
--- NOTE | 2018-11-10 12:37 | NUR ---
11/10/18 1237 Olinda Hilton VERIFICATIONS: EDIT CHART.
--- NOTE | 2018-11-10 14:53 | NUR ---
IV HYDRALAZINE AND 25 MCG FENT GIVEN PT RESTING WAKES TO VERBAL STIMULI STATED HER ABD IS HURTING 09/16
--- NOTE | 2018-11-10 17:20 | NUR ---
pt dry paula compazine given
--- NOTE | 2018-11-10 18:10 | NUR ---
pt awake family at bedside pt upset stated she does not want to keep feeling like this talked with family about trialing pt off the nausea med they asked if they could be making her feel like that stated she has had problems with zofran as an allergy
--- NOTE | 2018-11-11 00:35 | NUR ---
ALLY GOLDEN IN ROOM ATTEMPTING POWERGLIDE INSERTION.
--- NOTE | 2018-11-11 01:44 | NUR ---
PT CURRENTLY WITHOUT IV ACCESS. UNABLE TO ADMINISTER SCHED ABX PER EMAR. HOSPITALIST NOTIFIED. ADVISED TO ATTEMPT ANOTHER POWERGLIDE AND IF UNSUCCESSFUL, WILL ATTEMPT A PICC LINE IN THE MORNING PER DR. SHAW. PT NAUSEATED. NEW ORDER FOR PO PHENERGAN.
--- NOTE | 2018-11-11 05:44 | NUR ---
PT WITH ONE EPISODE OF COFFEE GROUND EMESIS AT APPROX O530. DR. SHAW NOTIFIED. NEW ORDER FOR DAILY PROTONIX.
--- NOTE | 2018-11-11 07:52 | NUR ---
SHIFT SUMMARY: PT POD #2 FOR LAP JACQUELINE. STERI STRIPS CDI. HYPOACTIVE BT T/O. LILIANA TO RLQ DRAINING SS FLUID. PT NAUSEATED THROUGHOUT SHIFT. NO IV ACCESS MOST OF NIGHT DESPITE 2 POWERGLIDE ATTEMPTS. FORTUNATLY PT ABLE TO GET A PG INSERTED THIS MORNING AND GIVEN IV ABX PER EMAR. PT ALSO MEDICATED WITH IV PHENERGAN AND COMPAZINE. ONE EPISODE OF COFFEE GROUND EMESIS THIS AM. HOSPITALIST NOTIFIED (SEE OTHER NOTE). PT NOW ON DAILY PROTONIX. CBG'S >200 T/O NIGHT. COVERED WITH LANTUS AND INSULIN PER SS.
[2018-11-11 13:16] LABS: Hematocrit 38.6 % (33.0-51.0); Hemoglobin 11.9 g/dL (11.5-16.0); Mean Corpuscular HGB 29.9 pg (26.0-34.0); Mean Corpuscular HGB Conc 30.8 g/dL (31.5-36.5); Mean Platelet Volume 10.6 fL (9.1-12.4); Platelet Count 140 K/mm3 (150-400); RDW Coefficient Variation 13.4 % (11.7-14.2); RDW Standard Deviation 48.3 fL (35.1-46.3); Red Blood Cell Count 3.98 M/mm3 (3.80-5.20)
[2018-11-11 13:21] LABS: Mean Corpuscular Volume 97 fL (80-100)
[2018-11-11 13:35] LABS: Calcium, Blood 7.7 mg/dL (8.5-10.1); Creatinine, Blood 1.52 mg/dL (0.40-1.00); Potassium, Blood 4.3 mmol/L (3.5-5.5)
[2018-11-12 06:01] LABS: BASOPHILS ABSOLUTE AUTO 0.01 K/mm3 (0.00-0.23); BASOPHILS PERCENT AUTO 0 % (0-2); EOSINOPHILS ABSOLUTE AUTO 0.01 K/mm3 (0.00-0.68); EOSINOPHILS PERCENT AUTO 0 % (0-6); Hematocrit 36.5 % (33.0-51.0); Hemoglobin 11.5 g/dL (11.5-16.0); IMMATURE GRAN PERCENT AUTO 2 % (0-1); LYMPHOCYTES ABSOLUTE AUTO 0.87 K/mm3 (0.84-5.20); LYMPHOCYTES PERCENT AUTO 14 % (21-46); MONOCYTES ABSOLUTE AUTO 0.41 K/mm3 (0.16-1.47); MONOCYTES PERCENT AUTO 6 % (4-13); Mean Corpuscular HGB 30.7 pg (26.0-34.0); Mean Corpuscular HGB Conc 31.5 g/dL (31.5-36.5); Mean Corpuscular Volume 97 fL (80-100); Mean Platelet Volume 10.4 fL (9.1-12.4); NEUTROPHILS ABSOLUTE AUTO 5.03 K/mm3 (1.96-9.15); NEUTROPHILS PERCENT AUTO 78 % (41-73); Platelet Count 155 K/mm3 (150-400); RDW Coefficient Variation 13.2 % (11.7-14.2); RDW Standard Deviation 47.7 fL (35.1-46.3); Red Blood Cell Count 3.75 M/mm3 (3.80-5.20); White Blood Cell Count 6.43 K/mm3 (4.00-11.30)
--- NOTE | 2018-11-12 06:38 | NUR ---
POD 3 S/P LAP RAJ. PT BP REMAINED ELEVATED BUT BELOW HYDRALAZINE PARAMETERS. PT DENIED CP/PRESSURE, HR SINUS 80'S PER TELE MONITOR. DRESSINGS CDI, LILIANA PUTTING OUT SS DRNG. PT STRUGGLED W/NAUSEA T/O NIGHT, HAD 1 LARGE EPISODE OF CLEAR EMESIS W/FAINT COFFEE GROUND APPEARANCE. PT DRANK ONLY WATER, IS INCONTINENT OF URINE AND STOOL. ATTENDS CHANGED PRN, PT REPOSITIONED COMFORT T/O NIGHT. IVF AND ABX CONT PER ORDERS. PT CONFUSED, ANXIOUS AT TIMES T/O NIGHT, BED ALARM ON, WILL CONT TO MONITOR UNTIL REP GIVEN TO ONCOMING RN.
--- NOTE | 2018-11-12 16:20 | NUR ---
SUMMARY: PT IS POD3 LAP RAJ. NO CHANGE TODAY. PT HAS HAD NAUSEA WITHOUT EMESIS AND ABD PAIN. MEDICATED PER EMAR. PT DRY HEAVING AND REPORTING PAIN IN THE MORNING. THIS AFTERNOON REPORTED DECREASED NAUSEA. AND PAIN "A LITTLE BETTER". PAIN SEEMS BETTER CONTROLED WITH 50MCG FENTANYL. PT HAD SEVERAL SOFT, BROWN BM'S TODAY. MINIMAL OUT OF LILIANA DRAIN. SURGICAL SITE WNL. PT HTN DISCUSSED WITH DR. CASAREZ, LABETALOL ORDERED PRN. PT/OT ALSO ORDERED. NO ACUTE SAFETY CONCERNS AT THIS TIME. WILL CTM AND REPORT TO NOC RN
[2018-11-13 04:43] LABS: BASOPHILS ABSOLUTE AUTO 0.01 K/mm3 (0.00-0.23); BASOPHILS PERCENT AUTO 0 % (0-2); EOSINOPHILS ABSOLUTE AUTO 0.02 K/mm3 (0.00-0.68); EOSINOPHILS PERCENT AUTO 0 % (0-6); Hematocrit 34.6 % (33.0-51.0); IMMATURE GRAN ABSOLUTE AUTO 0.12 K/mm3 (0.00-0.10); IMMATURE GRAN PERCENT AUTO 2 % (0-1); LYMPHOCYTES ABSOLUTE AUTO 1.13 K/mm3 (0.84-5.20); LYMPHOCYTES PERCENT AUTO 19 % (21-46); MONOCYTES ABSOLUTE AUTO 0.37 K/mm3 (0.16-1.47); MONOCYTES PERCENT AUTO 6 % (4-13); Mean Corpuscular HGB 29.9 pg (26.0-34.0); Mean Corpuscular HGB Conc 31.8 g/dL (31.5-36.5); Mean Platelet Volume 10.1 fL (9.1-12.4); NEUTROPHILS ABSOLUTE AUTO 4.36 K/mm3 (1.96-9.15); NEUTROPHILS PERCENT AUTO 73 % (41-73); Platelet Count 145 K/mm3 (150-400); RDW Standard Deviation 44.8 fL (35.1-46.3); Red Blood Cell Count 3.68 M/mm3 (3.80-5.20); White Blood Cell Count 6.01 K/mm3 (4.00-11.30)
[2018-11-13 04:46] LABS: Mean Corpuscular Volume 94 fL (80-100)
[2018-11-13 05:02] LABS: Bun/Creatinine Ratio 18.9 (12.0-20.0); Calcium, Blood 6.8 mg/dL (8.5-10.1); Creatinine, Blood 1.32 mg/dL (0.40-1.00); Potassium, Blood 2.6 mmol/L (3.5-5.5)
--- NOTE | 2018-11-13 06:23 | NUR ---
POD 4 S/P LAP RAJ. PT VSS, BP REMAINS ELEVATED-BELOW PRN PARAMETERS. DRESSINGS CDI. BT HYPO, NO CHANGE IN DISTENTION, ABD SOFT TO PALP. PT CONT TO HAVE RETCHING EPISODES, NO EMESIS THIS SHIFT, HAD SEVERAL SOFT BM. PO INTAKE MINIMAL, IVF CONT PER ORDERS. PT INCONTINENT, VOIDING LARGE AMTS OF URINE. PT CONFUSED AND ANXIOUS AT TIMES. SUPPORT AND REORIENTED PRN T/O NIGHT. WILL CONT TO MONITOR UNTIL REP GIVEN TO ONCOMING RN.
--- NOTE | 2018-11-13 18:48 | NUR ---
SHIFT SUMMARY: MANUEL WAS UP IN THE CHAIR THIS AFTERNOON. SHE WAS WEAK DURING HER EVAL WITH OT THIS MORNING, BUT WAS ABLE TO WORK WITH PT THIS AFTERNOON. SHE IS A TWO PERSON MAX ASSIST WITH A GAIT BELT. SHE HAS HAD FREQUENT INCONTINENT BOWEL MOVEMENTS WELL URINARY INCONTINENCE. SHE IS TOLERATING SMALL AMOUNTS OF CLEAR LIQUIDS THIS AFTERNOON, NONE THIS MORNING. SHE IS A&O X1-2. SHE DOES USE HER CALL LIGHT. SHE IS ABLE TO MAKE HER NEEDS KNOWN. A SPEECH THERAPY CONSULT WAS ORDERED THIS AFTERNOON DUE TO EPISODE OF COUGHING/CHOKING. POTASSIUM GIVEN TODAY WITH LABS TO FOLLOW AT 0500 11/14/18. SHE IS LYING IN BED WITH HER CALL LIGHT IN REACH.
--- NOTE | 2018-11-13 20:05 | NUR ---
ASSUMED CARE ASSUMED CARE OF PT APPROX. 1900. PT ALERT AND OREINTED TO SELF, FOLLOWS DIRECTIONS. AFTER A COUPLE OF MINUTES PT WAS ABLE TO REPORT WHERE SHE WAS. PT SLIGHTLY FORGETFUL BUT ABLE TO ANSWER QUESTIONS APPROPRIATELY. ASSESSMENT COMPLETED. LILIANA DRAIN IN PLACE, PATENT AND DRAINING. DRESSING REMAINS IN PLACE. PT ABLE TO MOVE SELF IN BED. SHORTLY AFTER START OF SHIFT PT WAS ABLE TO SURE SELF ONTO SIDE AND REPOSITION SELF IN BED. PT DENIES PAIN OR N/V. BOWEL TONES ACTIVE T/O. BED IN LOW POSITION, BED ALARM ON, CALL LIGHT IN REACH AND PT DENIES ANY NEEDS. WILL CONTINUE TO MONITOR,
--- NOTE | 2018-11-14 01:07 | NUR ---
REPORT GIVEN REPORT GIVEN TO RECIEVING RN. PT ABLE TO SLEEP FOR MAJORITY OF SHIFT. PT CONTINUED TO MOVE HERSELF AROUND IN BED. LILIANA DRAIN PATENT AND DRAINING. NO ACUTE CHANGES. BED IN LOW POSITION, CALL LIGHT IN REACH AND PT DENIES ANY NEEDS.
--- NOTE | 2018-11-14 01:46 | NUR ---
ASSUMED CARE OF PT. PT IS RESTING AT THIS TIME. CALL LIGHT IN REACH.
[2018-11-14 05:12] LABS: BASOPHILS ABSOLUTE AUTO 0.01 K/mm3 (0.00-0.23); BASOPHILS PERCENT AUTO 0 % (0-2); EOSINOPHILS ABSOLUTE AUTO 0.19 K/mm3 (0.00-0.68); EOSINOPHILS PERCENT AUTO 3 % (0-6); Hematocrit 32.5 % (33.0-51.0); Hemoglobin 10.4 g/dL (11.5-16.0); IMMATURE GRAN ABSOLUTE AUTO 0.28 K/mm3 (0.00-0.10); IMMATURE GRAN PERCENT AUTO 4 % (0-1); LYMPHOCYTES PERCENT AUTO 32 % (21-46); MONOCYTES ABSOLUTE AUTO 0.86 K/mm3 (0.16-1.47); MONOCYTES PERCENT AUTO 12 % (4-13); Mean Corpuscular HGB 29.9 pg (26.0-34.0); Mean Corpuscular Volume 93 fL (80-100); Mean Platelet Volume 10.4 fL (9.1-12.4); NEUTROPHILS ABSOLUTE AUTO 3.62 K/mm3 (1.96-9.15); NEUTROPHILS PERCENT AUTO 50 % (41-73); Platelet Count 128 K/mm3 (150-400); RDW Standard Deviation 43.6 fL (35.1-46.3); Red Blood Cell Count 3.48 M/mm3 (3.80-5.20); White Blood Cell Count 7.26 K/mm3 (4.00-11.30)
[2018-11-14 05:28] LABS: Bun/Creatinine Ratio 16.3 (12.0-20.0); Calcium, Blood 6.5 mg/dL (8.5-10.1); Creatinine, Blood 1.29 mg/dL (0.40-1.00); Magnesium, Blood 1.5 mg/dL (1.6-2.4); Potassium, Blood 2.9 mmol/L (3.5-5.5)
--- NOTE | 2018-11-14 05:49 | NUR ---
SEEMS TO BE DOING BETTER. DENIES ANY N/V SINCE ASSUMING CARE. K+ IS NOTED TO BE 2.9 THIS AM, PLACED CALL OUT TO DR. SHAW. PT RESTING COMFORTABLY AT THIS TIME. CALL LIGHT IN REACH.
--- NOTE | 2018-11-14 18:26 | NUR ---
SHIFT SUMMARY: MANUEL HAS BEEN TOLERATING A REGULAR DIET TODAY. SHE SPENT SEVERAL HOURS UP IN THE CHAIR AND WORKED WITH THERAPY. SHE IS ABLE TO MAKE HER NEEDS KNOWN. SHE IS A&OX1-2. SHE IS INCONTINENT OF BLADDER AND BOWEL. SCDs IN PLACE. LILIANA DRAINING SEROSANGEINOUS FLUID.
--- NOTE | 2018-11-15 07:30 | NUR ---
Patient received alert and oriented. VSS. On telemetry; Normal sinus rythm: 70s. tolerating PO. Incontinent of void/Bm. LILIANA drained 100ml Serosanguineous fluid. Patient became confused to place, time, event during the night. Redness to perineal area, nystatin applied. Unable to get blood return from [facility], Lab notified and will come draw. Dressing to Abd C/D/I
[2018-11-15 08:43] LABS: BASOPHILS ABSOLUTE AUTO 0.01 K/mm3 (0.00-0.23); BASOPHILS PERCENT AUTO 0 % (0-2); EOSINOPHILS ABSOLUTE AUTO 0.09 K/mm3 (0.00-0.68); EOSINOPHILS PERCENT AUTO 1 % (0-6); Hematocrit 34.4 % (33.0-51.0); Hemoglobin 11.1 g/dL (11.5-16.0); IMMATURE GRAN ABSOLUTE AUTO 0.37 K/mm3 (0.00-0.10); IMMATURE GRAN PERCENT AUTO 5 % (0-1); LYMPHOCYTES ABSOLUTE AUTO 1.51 K/mm3 (0.84-5.20); LYMPHOCYTES PERCENT AUTO 21 % (21-46); MONOCYTES PERCENT AUTO 16 % (4-13); Mean Corpuscular HGB 30.7 pg (26.0-34.0); Mean Corpuscular HGB Conc 32.3 g/dL (31.5-36.5); Mean Corpuscular Volume 95 fL (80-100); Mean Platelet Volume 10.6 fL (9.1-12.4); NEUTROPHILS ABSOLUTE AUTO 3.96 K/mm3 (1.96-9.15); NEUTROPHILS PERCENT AUTO 56 % (41-73); Platelet Count 111 K/mm3 (150-400); RDW Coefficient Variation 12.9 % (11.7-14.2); RDW Standard Deviation 45.1 fL (35.1-46.3); Red Blood Cell Count 3.61 M/mm3 (3.80-5.20); White Blood Cell Count 7.04 K/mm3 (4.00-11.30)
[2018-11-15 09:08] LABS: Bun/Creatinine Ratio 14.7 (12.0-20.0); Calcium, Blood 6.5 mg/dL (8.5-10.1); Creatinine, Blood 1.36 mg/dL (0.40-1.00); Potassium, Blood 3.2 mmol/L (3.5-5.5)
--- NOTE | 2018-11-15 12:41 | NUR ---
DISCHARGE: REPORT CALLED TO ALLY MUSA AT [facility]. [employer] PR[employer] PROJECT MANAGERPORFIRIO ARRANGED DISCHARGE PAPERWORK AND PLAN. POWERGLIDE AT UPPER ARM DC'D. AWAITING PT TRANSPORT AT THIS TIME.
== END 2018-11-15 13:20 | disposition home health service (06) | DRG 854 ==
LOC: ER 02:38 → SURS 09:50
PROVIDERS: Emergency Medicine; Hospitalist; Nurse Practitioner Acute Care; Surgery; ADMIT Internal Medicine
PROC: 0FT44ZZ Resection of Gallbladder, Percutaneous Endoscopic Approach (ICD-10-PCS; principal; 2018-11-09 14:30)
DX: A41.9 Sepsis, unspecified organism (principal); K81.0 Acute cholecystitis; I13.0 Hypertensive heart and chronic kidney disease with heart failure and stage 1 through stage 4 chronic kidney disease, or unspecified chronic kidney disease; I50.32 Chronic diastolic (congestive) heart failure; E11.22 Type 2 diabetes mellitus with diabetic chronic kidney disease; N18.3 Chronic kidney disease, stage 3 (moderate); I25.10 Atherosclerotic heart disease of native coronary artery without angina pectoris; K82.A1 Gangrene of gallbladder in cholecystitis; F03.90 Unspecified dementia, unspecified severity, without behavioral disturbance, psychotic disturbance, mood disturbance, and anxiety; F41.8 Other specified anxiety disorders; K91.0 Vomiting following gastrointestinal surgery
CPT/HCPCS: 36415; 74018; 74176; 76705; 80048; 80053; 82947; 83605; 83690; 83735; 84484; 85025; 85027; 85610; 87040; 88304; 92610; 93005; 93010; 96361; 96374; 96375; 96376; 97110; 97162; 97166; 97530; 99284-25; 99285-25; A9270; C1751; C9113; J0295; J0330; J0360; J0694; J0780; J1170; J1815; J2370; J2543; J2550; J2704; J2710; J3010; J3480; J7030; J7120

== ENCOUNTER 2018-11-18 21:54 | Emergency (ER) | payer OTHER ==
[~2018-11-18] VITALS: Ht 162.6 cm; Wt 127.0 kg
[2018-11-18] MEDS ORDERED: PANT20 PO (22:17)
[2018-11-18 22:24] LABS: Source, Urine Catheter
[2018-11-18 22:30] LABS: Bilirubin, Urine Neg (Neg); Blood, Urine 1+ (Neg); Glucose Qualitative, Urine 4+ (Neg); Ketones, Urine Neg (Neg); Leukocyte Esterase, Urine Neg (Neg); Nitrite, Urine Neg (Neg); Protein, Urine 2+ (Neg); Specific Gravity, Urine 1.015 (1.003-1.022); Urobilinogen, Urine NORM (Normal)
[2018-11-18 23:04] LABS: BASOPHILS ABSOLUTE AUTO 0.02 K/mm3 (0.00-0.23); BASOPHILS PERCENT AUTO 0 % (0-2); EOSINOPHILS ABSOLUTE AUTO 0.06 K/mm3 (0.00-0.68); EOSINOPHILS PERCENT AUTO 1 % (0-6); Hematocrit 31.2 % (33.0-51.0); Hemoglobin 9.9 g/dL (11.5-16.0); IMMATURE GRAN ABSOLUTE AUTO 0.27 K/mm3 (0.00-0.10); IMMATURE GRAN PERCENT AUTO 3 % (0-1); LYMPHOCYTES ABSOLUTE AUTO 2.29 K/mm3 (0.84-5.20); LYMPHOCYTES PERCENT AUTO 29 % (21-46); MONOCYTES ABSOLUTE AUTO 1.42 K/mm3 (0.16-1.47); MONOCYTES PERCENT AUTO 18 % (4-13); Mean Corpuscular HGB 30.7 pg (26.0-34.0); Mean Corpuscular HGB Conc 31.7 g/dL (31.5-36.5); Mean Corpuscular Volume 97 fL (80-100); NEUTROPHILS ABSOLUTE AUTO 3.87 K/mm3 (1.96-9.15); NEUTROPHILS PERCENT AUTO 49 % (41-73); Platelet Count 163 K/mm3 (150-400); RDW Coefficient Variation 13.6 % (11.7-14.2); RDW Standard Deviation 46.4 fL (35.1-46.3); Red Blood Cell Count 3.22 M/mm3 (3.80-5.20); White Blood Cell Count 7.93 K/mm3 (4.00-11.30)
[2018-11-18 23:05] LABS: Appearance, Urine Hazy (Clear); Bacteria Few /hpf; Color, Urine Yellow (P-Yellow); Red Blood Cells, Urine 0-2 /hpf (0-2); Squamous Epithelial Cells Many /hpf (Few); White Blood Cells, Urine Rare /hpf (0-5)
[2018-11-19 00:24] LABS: Albumin, Blood 2.6 g/dL (3.4-5.0); Albumin/Globulin Ratio 0.9 (0.8-1.8); Bilirubin, Total 0.7 mg/dL (0.1-1.0); Calcium, Blood 7.4 mg/dL (8.5-10.1); Creatinine, Blood 1.25 mg/dL (0.40-1.00); Globulin, Blood 2.8 g/dL (2.2-4.0); Potassium, Blood 3.4 mmol/L (3.5-5.5); Total Protein, Blood 5.4 g/dL (6.4-8.2)
== END 2018-11-19 01:10 | disposition home or self-care (01) ==
LOC: ER 21:54
PROVIDERS: Emergency Medicine
DX: E11.65 Type 2 diabetes mellitus with hyperglycemia (principal); D64.9 Anemia, unspecified; Z88.8 Allergy status to other drugs, medicaments and biological substances; Z88.1 Allergy status to other antibiotic agents; Z79.899 Other long term (current) drug therapy; Z79.4 Long term (current) use of insulin; Z79.82 Long term (current) use of aspirin; Z79.891 Long term (current) use of opiate analgesic; I11.0 Hypertensive heart disease with heart failure; I50.9 Heart failure, unspecified; K21.9 Gastro-esophageal reflux disease without esophagitis; E03.9 Hypothyroidism, unspecified; F32.9 Major depressive disorder, single episode, unspecified; E11.40 Type 2 diabetes mellitus with diabetic neuropathy, unspecified
CPT/HCPCS: 36415; 51701; 71046; 80053; 81001; 85025; 93005; 93010; 99285-25; J1815

== ENCOUNTER → 2019-02-01 | Outpatient (CLI) | payer OTHER ==
[~2019-02-01] MED LIST changes: +PANT20 PO
[2019-02-01 16:09] LABS: Source, Urine Clean Catch
[2019-02-01 16:53] LABS: Bilirubin, Urine Neg (Neg); Blood, Urine 5+ (Neg); Glucose Qualitative, Urine 3+ (Neg); Ketones, Urine 1+ (Neg); Leukocyte Esterase, Urine 3+ (Neg); Nitrite, Urine Neg (Neg); Protein, Urine 3+ (Neg); Specific Gravity, Urine 1.015 (1.003-1.022); Urobilinogen, Urine 1+ (Normal)
[2019-02-01 17:00] LABS: Appearance, Urine Bloody (Clear); Color, Urine Brown (P-Yellow)
[2019-02-01 17:01] LABS: Red Blood Cells, Urine TNTC /hpf (0-2); White Blood Cells, Urine TNTC /hpf (0-5)
[2019-02-01 17:02] LABS: Bacteria Many /hpf; Squamous Epithelial Cells Few /hpf (Few)
== END | disposition home or self-care (01) ==
LOC: LAB 14:30 → LAB SHORT 14:30
PROVIDERS: Family Medicine
DX: N39.0 Urinary tract infection, site not specified (principal)
CPT/HCPCS: 81001; 87077; 87086; 87186

== ENCOUNTER → 2019-02-27 | Outpatient (CLI) | payer OTHER ==
[2019-02-27 09:49] LABS: Source, Urine Clean Catch
[2019-02-27 11:16] LABS: Bilirubin, Urine Neg (Neg); Blood, Urine 1+ (Neg); Glucose Qualitative, Urine 1+ (Neg); Ketones, Urine Neg (Neg); Leukocyte Esterase, Urine Neg (Neg); Nitrite, Urine Neg (Neg); Protein, Urine 1+ (Neg); Urobilinogen, Urine NORM (Normal); pH, Urine 6.5 (5.0-8.0)
[2019-02-27 11:32] LABS: Appearance, Urine Hazy (Clear); Bacteria Not Seen /hpf; Color, Urine Yellow (P-Yellow); Red Blood Cells, Urine 0-2 /hpf (0-2); Squamous Epithelial Cells Mod /hpf (Few); White Blood Cells, Urine Not Seen /hpf (0-5)
== END ==
LOC: LAB 07:00 → LAB SHORT 07:00 → LAB FUT 02-14 09:55
PROVIDERS: Family Medicine
DX: N39.0 Urinary tract infection, site not specified (principal); E03.9 Hypothyroidism, unspecified
CPT/HCPCS: 81001

== ENCOUNTER 2019-03-19 12:28 | Inpatient (IN) | payer OTHER ==
[~2019-03-19] VITALS: Ht 162.6 cm; Wt 92.5 kg
[~2019-03-19 12:28] MED LIST changes: +NOVOLOG FL100 UNIT/1 SC; +SYNTHROID0.2 MG PO
[2019-03-19] MEDS ORDERED: FLUO10 PO (13:29)
[2019-03-19 13:37] LABS: BASOPHILS ABSOLUTE AUTO 0.01 K/mm3 (0.00-0.23); BASOPHILS PERCENT AUTO 0 % (0-2); EOSINOPHILS PERCENT AUTO 0 % (0-6); Hematocrit 40.3 % (33.0-51.0); Hemoglobin 12.5 g/dL (11.5-16.0); IMMATURE GRAN ABSOLUTE AUTO 0.05 K/mm3 (0.00-0.10); IMMATURE GRAN PERCENT AUTO 1 % (0-1); LYMPHOCYTES ABSOLUTE AUTO 1.21 K/mm3 (0.84-5.20); LYMPHOCYTES PERCENT AUTO 29 % (21-46); MONOCYTES ABSOLUTE AUTO 0.54 K/mm3 (0.16-1.47); MONOCYTES PERCENT AUTO 13 % (4-13); Mean Corpuscular HGB 28.1 pg (26.0-34.0); Mean Corpuscular Volume 91 fL (80-100); Mean Platelet Volume 10.7 fL (9.1-12.4); NEUTROPHILS ABSOLUTE AUTO 2.36 K/mm3 (1.96-9.15); NEUTROPHILS PERCENT AUTO 57 % (41-73); Platelet Count 128 K/mm3 (150-400); RDW Coefficient Variation 13.1 % (11.7-14.2); RDW Standard Deviation 42.6 fL (35.1-46.3); Red Blood Cell Count 4.45 M/mm3 (3.80-5.20); White Blood Cell Count 4.17 K/mm3 (4.00-11.30)
[2019-03-19 13:56] LABS: Albumin, Blood 3.7 g/dL (3.4-5.0); Albumin/Globulin Ratio 0.9 (0.8-1.8); Bilirubin, Total 1.2 mg/dL (0.1-1.0); Bun/Creatinine Ratio 16.3 (12.0-20.0); Calcium, Blood 9.1 mg/dL (8.5-10.1); Creatinine, Blood 1.23 mg/dL (0.40-1.00); Globulin, Blood 4.2 g/dL (2.2-4.0); Potassium, Blood 3.9 mmol/L (3.5-5.5); Total Protein, Blood 7.9 g/dL (6.4-8.2)
[2019-03-19 15:03] LABS: Source, Urine Catheter
[2019-03-19 15:11] LABS: Bilirubin, Urine Neg (Neg); Blood, Urine 4+ (Neg); Glucose Qualitative, Urine 4+ (Neg); Ketones, Urine 2+ (Neg); Leukocyte Esterase, Urine Neg (Neg); Nitrite, Urine Neg (Neg); Protein, Urine 4+ (Neg); Urobilinogen, Urine NORM (Normal)
[2019-03-19 15:18] LABS: Appearance, Urine Clear (Clear); Color, Urine Yellow (P-Yellow)
[2019-03-19 15:19] LABS: Bacteria Few /hpf; Squamous Epithelial Cells Few /hpf (Few); White Blood Cells, Urine 0-2 /hpf (0-5)
[2019-03-19] MEDS ORDERED: ARTIFICIAL TEAR15 M2 BOTHEYES (17:25)
[2019-03-19] MEDS ORDERED: CALMOSEPTINE O3.5 GM (20:01)
[2019-03-19] MEDS ORDERED: OSTERA TABLET1 EACH PO (20:14)
[2019-03-19] MEDS ORDERED: Pedi-Dri 100,0060 GM TOP (20:15)
[2019-03-19] MEDS ORDERED: Systane 0.3-0.415 ML (20:21)
[2019-03-19] MEDS ORDERED: SPORTSCREME TOP (20:22)
--- NOTE | 2019-03-20 01:04 | NUR ---
03/19/192029 RN GIVING MEDS AND SPECIMENS OBTAINED AND SENT TO LAB. PT CONFUSED. BED ALARM ON. DENIES ANY DISCOMFORT OR S/S. BP BETTER. PT ANXIOUS WHEN GIVEN CARE. REASSURED PT AND RE-ORIENTED HER TO SURROUNDINGS.
[2019-03-20 05:17] LABS: BASOPHILS ABSOLUTE AUTO 0.01 K/mm3 (0.00-0.23); BASOPHILS PERCENT AUTO 0 % (0-2); EOSINOPHILS PERCENT AUTO 0 % (0-6); Hematocrit 38.7 % (33.0-51.0); Hemoglobin 12.1 g/dL (11.5-16.0); IMMATURE GRAN ABSOLUTE AUTO 0.04 K/mm3 (0.00-0.10); IMMATURE GRAN PERCENT AUTO 1 % (0-1); LYMPHOCYTES ABSOLUTE AUTO 0.69 K/mm3 (0.84-5.20); LYMPHOCYTES PERCENT AUTO 17 % (21-46); MONOCYTES ABSOLUTE AUTO 0.86 K/mm3 (0.16-1.47); MONOCYTES PERCENT AUTO 22 % (4-13); Mean Corpuscular HGB 27.9 pg (26.0-34.0); Mean Corpuscular HGB Conc 31.3 g/dL (31.5-36.5); Mean Corpuscular Volume 89 fL (80-100); Mean Platelet Volume 10.2 fL (9.1-12.4); NEUTROPHILS ABSOLUTE AUTO 2.36 K/mm3 (1.96-9.15); NEUTROPHILS PERCENT AUTO 60 % (41-73); Platelet Count 112 K/mm3 (150-400); RDW Coefficient Variation 13.2 % (11.7-14.2); RDW Standard Deviation 42.7 fL (35.1-46.3); Red Blood Cell Count 4.34 M/mm3 (3.80-5.20); White Blood Cell Count 3.96 K/mm3 (4.00-11.30)
[2019-03-20 05:35] LABS: Bun/Creatinine Ratio 16.8 (12.0-20.0); Calcium, Blood 8.9 mg/dL (8.5-10.1); Creatinine, Blood 1.25 mg/dL (0.40-1.00); Potassium, Blood 3.7 mmol/L (3.5-5.5)
--- NOTE | 2019-03-20 06:48 | NUR ---
03/20/19 0630 BUSY NIGHT WITH EPISODES OF HIGH BLOOD PRESSURE AND NAUSEA WITH DRY HEAVES. YELLS OUT LOUD ABOUT "FEEL SICK!" REASSURED BUT HAS DEMENTIA AND FORGETS. IV FLUIDS AT 75ML/HOUR. INCONTINENT OF URINE AND BRIEFS CHANGED. HAD SMEAR OF MUCOUS BROWN BM THIS AM. UNABLE TO OBTAIN BM SAMPLE. VITALS BETTER THIS AM.
--- NOTE | 2019-03-20 10:34 | NUR ---
BP 220/96 DR. LEMA NOTIFIED OF HYPERTENSION. ORDER RECEIVED TO INCREASE APRESOLINE TO 20 MG Q4P.
--- NOTE | 2019-03-20 13:30 | NUR ---
BG [address] LEMA OF BG 420. ORDERS RECEIVED.
--- NOTE | 2019-03-20 17:05 | NUR ---
Shift Summary A/Ox1. Medicated for nausea x 1, hypertension x 2 with good results. Pt does continue to dry heave when woken up, but has been sleeping most of the afternoon. Medicated for abdominal pain x 1. Abdomen tender to touch, hypoactive. 22 g IV leaked, new 20 g IV placed by rn charge LAC. Incontinent, attends in place. Follows directions well, but is [place]. Able to assist with attends change. Bed alarm on for safety, bed in lowest position. Call light near, pt does not use call light appropriate, instead, calls out "Help!". No other concerns. Will monitor.
--- NOTE | 2019-03-20 19:15 | NUR ---
Initial Visit: Pt admitted for treatment of colitis. She has a past medical history of demenita, gallbladder removal, CHF, diabetes, hypothyroidism. She is [place] and lives at [facility]. Pt is presently resting, appears to be asleep. Her daughter, Stephanie, is at bedside. She reports that pt has recently moved to [facility] from [facility], since her dementia worsened. She moved there in Nov. Pt is wheelchair bound at baseline, daughter reports that she moves in it with her feet and using her arms. She is able to peddle down for mealtimes at her facility. She is able to remember her daughter, her son, and her favorite caregiver. Other than that, she is unable to remember and retain names of people. She has frequent crying spells and reports to [facility] staff that she never gets any visitors- even though her son and daughter visit. Stephanie states that they keep a calender of the days that they visit in her room to show her that she does get visitors, but Stephanie states that lately even that is difficult for the pt to understand. Stephanie states that she believes patient to have a decent quality of life: she enjoys company and she enjoys eating. She is able to feed herself. Stephanie is the decision maker for the pt at this point. She was evaluated by [facility] to see if she qualified for the services. Stephanie was told that she was stable at the time, but they would re-evaluate in 6 months to see how she is doing. Reviewed with Stephanie that if she starts suffering, or starts to have increased visits to the ER and hospital, it may benefit to ask for a re-evaluation. KPS 50% PPS 50% FAST 6c Pt has an appropriate POLST form on file and was reviewed with Stephanie. No other concerns at this time. Pt's symptoms of pain and nausea are being managed with medications to an acceptable and therapeutic level.
--- NOTE | 2019-03-21 06:30 | NUR ---
PT with no stool this shift. PT complaints of nausea and dry heaves with movement. GI panel cancelled due to no specimen x 24 plus hours. PT continues in contact precautions awaiting MRSA cultures. PT has dementia does not use call franks yells " help me" frequently. Medicated x 1 for abd pain with 2 mg IV morphine with mild helpful effect. On lactated ringers at 75 ml hr and IV flagyl and rocephin to treat colitis, hx of cholecystectomy. unable to tolerate clear liquid diet. Medicated x 2 with phenergan 12.5 mg with mild helpful effect.
--- NOTE | 2019-03-21 17:04 | NUR ---
SHIFT SUMMARY PATIENT IS CONFUSED AT BASELINE, APPEARS TO BE VERY HARD OF HEARING. SLEEPING MUCH OF THE SHIFT. INCONTINENT. POWER GLIDE PLACED. RECEIVING IV ANTIBIOTICS. NOTIFIED OF HIGH BLOOD PRESSURE. PATIENT HAVING VERY LOW URINE OUTPUT. NOTIFIED OF THIS. NO ORDER CHANGES AT THIS TIME. CONTINUING TO MONITOR.
--- NOTE | 2019-03-21 18:12 | NUR ---
COMPLAINING OF ABDOMINAL PAIN. MEDICATED PER EMAR. PATIENT HAD ANOTHER INCONTINENT OF URINE. PVR NOTED TO BE 273. ATTENDS CHANGED PRN FOR INCONTINENCE. BED BATH GIVEN
--- NOTE | 2019-03-21 20:46 | NUR ---
pATIENT CALLING OUT "HELP ME" CANT ARTICULATE IF SHE IS IN PAIN. SHE IS BELCHING FREQUENTLY, I THINK SHE IS NAUSEATED. GAVE COMPAZINE FOR NAUSEA AND HYDXRALIZINE PER EMAR FOR BP 197/85. WILL RECHECK IN 1 HOUR.
--- NOTE | 2019-03-22 03:27 | NUR ---
PATIENT CONTINUES TO COMPLAIN OF NAUSEA INTERMITTENTLY. COMPAZINE GIVEN PER EMAR. SHE IS VERY CONFUSED. DOESNT RECOGNIZE THE EMEISIS BAG OR UNDERSTAND DIRECTIONS TO USE IT IF SHE NEEDS TO VOMIT. SHE HASNT HAD ANYTHING TO DRINK SINCE SHIFT CHANGE SO I SAT HER UP AND OFFERED APPLEJUICE, SHE DRANK ABOUT 120ML. THEN SHE FELL BACK TO SLEEP. HER SBP IS STILL ELEVATED AT 179 AND WILL GIVE HYDRALIZINE PER EMAR.
--- NOTE | 2019-03-22 06:15 | NUR ---
END OF SHIFT: PATIENT CRIED OUT INTERMITTENTLY THRU THE SHIFT. THIS MAY BE HER BASELINE. SHE RECEIVED PAIN MEDS AND ANTI-EMETICS PER EMAR. SHE WAS TURNED AND REPOSITIONED PER PROTOCOL. HER AM LABS WERE DRAWN. SHE HAD LITTLE OUTPUT MOST OF THE SHIFT BUT ONE I STARTED PUSHING FLUIDS SHE HAD A LARGE INCONTINENT VOID. POST VOID RESIDUAL WAS 122 ML BLADDER VOLUME. AT THIS TIME PATIENT IS RESTING QUIETLY.
[2019-03-22 06:20] LABS: BASOPHILS ABSOLUTE AUTO 0.01 K/mm3 (0.00-0.23); BASOPHILS PERCENT AUTO 0 % (0-2); EOSINOPHILS PERCENT AUTO 0 % (0-6); Hematocrit 39.7 % (33.0-51.0); Hemoglobin 11.9 g/dL (11.5-16.0); IMMATURE GRAN PERCENT AUTO 2 % (0-1); LYMPHOCYTES PERCENT AUTO 19 % (21-46); MONOCYTES ABSOLUTE AUTO 0.43 K/mm3 (0.16-1.47); MONOCYTES PERCENT AUTO 10 % (4-13); Mean Corpuscular HGB 27.9 pg (26.0-34.0); Mean Platelet Volume 10.9 fL (9.1-12.4); NEUTROPHILS ABSOLUTE AUTO 2.98 K/mm3 (1.96-9.15); NEUTROPHILS PERCENT AUTO 69 % (41-73); Platelet Count 118 K/mm3 (150-400); RDW Coefficient Variation 13.8 % (11.7-14.2); RDW Standard Deviation 46.5 fL (35.1-46.3); Red Blood Cell Count 4.26 M/mm3 (3.80-5.20); White Blood Cell Count 4.32 K/mm3 (4.00-11.30)
[2019-03-22 06:21] LABS: Mean Corpuscular Volume 93 fL (80-100)
[2019-03-22 06:35] LABS: Bun/Creatinine Ratio 21.9 (12.0-20.0); Calcium, Blood 8.5 mg/dL (8.5-10.1); Creatinine, Blood 1.37 mg/dL (0.40-1.00); Potassium, Blood 3.2 mmol/L (3.5-5.5)
--- NOTE | 2019-03-22 09:46 | NUR ---
PATIENT CONTINUES TO HAVE EPISODES OF "GAGGING". ABLE TO KEEP MORNING MEDICATION IN BUT APPEARS NAUSATED WITH ANY ORAL INTAKE.
--- NOTE | 2019-03-22 11:03 | NUR ---
DISCUSSED WITH PATIENT VOMITING. CONCERN FOR POOR PO INTAKE. STATED HE WOULD REVIEW HER AND PLACE ORDERS. ALSO INFORMED THAT PATIENT WAS UNABLE TO KEEP ANYTHING PO DOWN DUE TO VOMITING.
--- NOTE | 2019-03-22 16:40 | NUR ---
SHIFT SUMMARY PATIENT TOLERATING IV POTASSIUM WELL. NEW ORDER FOR IV CLINIMIX AND LIPIDS WELL. BLOOD SUGARS CONTINUE TO BE HIGH. COVERAGE PER EMAR.
--- NOTE | 2019-03-22 18:00 | NUR ---
Initial spiritual care note: Mrs. Yusuf was alone in room. She smiled broadly at me and thought I was someone she knew and loved. She pulled me to her and hugged me tightly several times. She is [place] and her speech was unclear at times. Conversation was difficult, but she responded happily to touch, affirmation of care, and loving presence. She denied pain and appeared comfortable and well cared-for. We had a nomi visit--concluded with prayer. [facility] services will remain availale.
[2019-03-23 06:20] LABS: BASOPHILS ABSOLUTE AUTO 0.02 K/mm3 (0.00-0.23); BASOPHILS PERCENT AUTO 0 % (0-2); EOSINOPHILS PERCENT AUTO 0 % (0-6); Hematocrit 38.8 % (33.0-51.0); Hemoglobin 11.9 g/dL (11.5-16.0); IMMATURE GRAN ABSOLUTE AUTO 0.29 K/mm3 (0.00-0.10); IMMATURE GRAN PERCENT AUTO 6 % (0-1); LYMPHOCYTES ABSOLUTE AUTO 1.76 K/mm3 (0.84-5.20); LYMPHOCYTES PERCENT AUTO 34 % (21-46); MONOCYTES ABSOLUTE AUTO 0.56 K/mm3 (0.16-1.47); MONOCYTES PERCENT AUTO 11 % (4-13); Mean Corpuscular HGB 28.5 pg (26.0-34.0); Mean Corpuscular HGB Conc 30.7 g/dL (31.5-36.5); Mean Corpuscular Volume 93 fL (80-100); Mean Platelet Volume 10.7 fL (9.1-12.4); NEUTROPHILS ABSOLUTE AUTO 2.57 K/mm3 (1.96-9.15); NEUTROPHILS PERCENT AUTO 49 % (41-73); Platelet Count 120 K/mm3 (150-400); RDW Coefficient Variation 13.9 % (11.7-14.2); RDW Standard Deviation 46.6 fL (35.1-46.3); Red Blood Cell Count 4.18 M/mm3 (3.80-5.20)
--- NOTE | 2019-03-23 06:31 | NUR ---
CMM INSPECTOR SUMMARY PT AAOX1 BUT PLEASANT AND FOLLOWS DIRECTION. CONTINUES ON IV CLINIMIX AND LIPIDS PT IS NPO DUE TO BECOMING NAUSEOUS WITH MOST PO INTAKE. CONTINUES TO BE HYPERTENSIVE WITH MULTIPLE DOSES OF IV HYDRALAZINE GIVEN THROUGH THE NIGHT. LAST SBP 170'S. PT ALSO TREATED FOR NAUSEA WITH COMPAZINE X1. HAS ALLOWED PT TO REST OFF/ON THROUGH THE NIGHT. VSS, WILL CONTINUE TO MONITOR.
[2019-03-23 06:40] LABS: Albumin, Blood 3.3 g/dL (3.4-5.0); Albumin/Globulin Ratio 0.9 (0.8-1.8); Bilirubin, Total 0.4 mg/dL (0.1-1.0); Bun/Creatinine Ratio 22.5 (12.0-20.0); Calcium, Blood 8.1 mg/dL (8.5-10.1); Creatinine, Blood 1.2 mg/dL (0.40-1.00); Globulin, Blood 3.6 g/dL (2.2-4.0); Potassium, Blood 3.6 mmol/L (3.5-5.5); Total Protein, Blood 6.9 g/dL (6.4-8.2)
--- NOTE | 2019-03-23 16:48 | NUR ---
SHIFT SUMMARY PT RESTING QUIETLY THIS AM. WAKES EASILY FOR CARE. HAS SLEPT MOST OF THE DAY, EXCEPT FOR WHEN VISITORS AT BS AND DURING ATTENDS CHANGE. PT HAS BEEN INCONTINENT OF BOWEL AND BLADDER. HAS TOLERATED SOME ICE WATER AND DIET PEPSI, BUT THEN STARTED TO VOMIT AFTER DRINKING SM AMT OF BROTH AT LUNCH. CLINIMIX AND LIPIDS INFUSING. IV HYDRALAZINE ADMIN X1 TO PRESENT THIS SHIFT. PER REPORT, PT LIVES AT [facility], [facility] [employer] AND IS NORMALLY ABLE TO PUSH HER W/C TO GET AROUND. PT IS ABLE TO ASSIST WITH TURNING WHEN CHANGING AND DOES FOLLOW INSTRUCTIONS. NO C/O. YASMIN AND CO-OP. CALL LT IN REACH.
--- NOTE | 2019-03-24 18:40 | NUR ---
SHE WAS NPO THEN LATER REFUSED HER CL LUNCH, THEN LATER DRANK/ATE A LITTLE OF HER FL DINNER. NO C/O NAUSEA TODAY. SHE ADMITTED TO A LITTLE ABD PAIN ACROSS HER UPPER ABD WHEN ASKED. REPEAT CT SCAN DONE TODAY. IT SHOWED IMPROVEMENT. SHE WAS PLEASANTLY DEMENTED THIS MORNING AND THIS EVENING BUT WAS VERY AGITATED AND PARANOID THIS AFTERNOON. I CALLED HER DAUGHTER TO SEE IF SHE COULD COME IN TO CALM HER. SHE DID COME IN LATER BUT HER MOTHER HAD ALREADY CALMED. SHE FELL ASLEEP AND WHEN SHE WOKE UP SHE WAS PLEASANT AGAIN. CLINIMIX AND LIPIDS CONTINUE.
[2019-03-24 18:54] LABS: Adenovirus F 40/41 Not Detected (NOT DETECT); Astrovirus Not Detected (NOT DETECT); Campylobacter Sp Not Detected (NOT DETECT); Cryptosporidium Not Detected (NOT DETECT); Cyclospora Cayetanensis Not Detected (NOT DETECT); E. Coli O157 Not Detected (NOT DETECT); Entamoeba Histolytica Not Detected (NOT DETECT); Enteroaggregative E. coli-EAEC Not Detected (NOT DETECT); Enteropathogenic E. coli-EPEC Not Detected (NOT DETECT); Enterotoxigenic E. coli-ETEC Not Detected (NOT DETECT); Giardia Lamblia Not Detected (NOT DETECT); Norovirus GI/GII Not Detected (NOT DETECT); Plesiomonas Shigelloides Not Detected (NOT DETECT); Rotavirus A Not Detected (NOT DETECT); Salmonella Sp Not Detected (NOT DETECT); Sapovirus Not Detected (NOT DETECT); Shiga Toxin-prod E. coli-STEC Not Detected (NOT DETECT); Shigella/Enteroin E. coli-EIEC Not Detected (NOT DETECT); Vibrio Cholerae Not Detected (NOT DETECT); Vibrio Sp Not Detected (NOT DETECT); Yersinia Enterocolitica Not Detected (NOT DETECT)
--- NOTE | 2019-03-25 04:12 | NUR ---
SHIFT SUMMARY PT HAS HAD NO ACUTE CHANGES THIS SHIFT, CONTINUES TO HAVE LOOSE STOOLS, 3 THIS SHIFT, PT IS SLEEPING AT THIS TIME, CALL LIGHT IN REACH, WILL CONT TO MONITOR UNTIL REPORT GIVEN TO DAY RN.
[2019-03-25 05:43] LABS: BASOPHILS ABSOLUTE AUTO 0.01 K/mm3 (0.00-0.23); BASOPHILS PERCENT AUTO 0 % (0-2); EOSINOPHILS ABSOLUTE AUTO 0.05 K/mm3 (0.00-0.68); EOSINOPHILS PERCENT AUTO 1 % (0-6); Hemoglobin 10.8 g/dL (11.5-16.0); IMMATURE GRAN ABSOLUTE AUTO 0.16 K/mm3 (0.00-0.10); IMMATURE GRAN PERCENT AUTO 3 % (0-1); LYMPHOCYTES ABSOLUTE AUTO 2.01 K/mm3 (0.84-5.20); LYMPHOCYTES PERCENT AUTO 41 % (21-46); MONOCYTES PERCENT AUTO 18 % (4-13); Mean Corpuscular HGB 28.6 pg (26.0-34.0); Mean Corpuscular HGB Conc 31.8 g/dL (31.5-36.5); Mean Platelet Volume 11.5 fL (9.1-12.4); NEUTROPHILS ABSOLUTE AUTO 1.82 K/mm3 (1.96-9.15); NEUTROPHILS PERCENT AUTO 37 % (41-73); Platelet Count 81 K/mm3 (150-400); RDW Coefficient Variation 13.2 % (11.7-14.2); RDW Standard Deviation 43.4 fL (35.1-46.3); Red Blood Cell Count 3.78 M/mm3 (3.80-5.20); White Blood Cell Count 4.95 K/mm3 (4.00-11.30)
[2019-03-25 05:45] LABS: Mean Corpuscular Volume 90 fL (80-100)
[2019-03-25 06:07] LABS: BAND PERCENT MAN 3 % (0-8); BASOPHILS PERCENT MAN 0 % (0-2); EOSINOPHILS PERCENT MAN 0 % (0-6); LYMPHOCYTES ABSOLUTE MAN 1.68 K/mm3 (0.84-5.20); LYMPHOCYTES PERCENT MAN 34 % (21-46); METAMYELOCYTE ABSOLUTE MAN 0.29 K/mm3 (0.00-0.00); METAMYELOCYTE PERCENT MAN 6 % (0-0); MONOCYTES ABSOLUTE MAN 0.29 K/mm3 (0.16-1.47); MONOCYTES PERCENT MAN 6 % (4-13); MYELOCYTE ABSOLUTE MAN 0.04 K/mm3 (0.00-0.00); MYELOCYTE PERCENT MAN 1 % (0-0); NEUTROPHILS ABSOLUTE MAN 2.62 K/mm3 (1.96-9.15); SEG NEUTROPHILS PERCENT MAN 50 % (41-73); TOTAL CELLS COUNTED 100
[2019-03-25 06:14] LABS: Bun/Creatinine Ratio 22.1 (12.0-20.0); Calcium, Blood 7.8 mg/dL (8.5-10.1); Creatinine, Blood 1.04 mg/dL (0.40-1.00); Magnesium, Blood 1.9 mg/dL (1.6-2.4); Phosphorus, Blood 2.7 mg/dL (2.5-4.9); Potassium, Blood 2.9 mmol/L (3.5-5.5)
--- NOTE | 2019-03-25 17:26 | NUR ---
SHE IS SITTING UP IN THE CHAIR. SHE REFUSED TO GET UP EARLIER TODAY BUT IS UP NOW. CHAIR ALARM ON. HER DAUGHTER VISITED THIS AFTERNOON. MANUEL WILL HAVE A PT EVAL TOMORROW. HER DIET WAS CHANGED TO SOFT ADA FOR LUNCH. SHE ATE PRETTY WELL. NO C/O NAUSEA. SHE CONTINUES TO HAVE SMALL GELATINOUS BROWN INCONTINENT STOOLS. C-DIFF RESULTS SHOW COLONIZATION INSTEAD OF INFECTION. PO VANCO STOPPED. IV FLAGYL CONTINUES FOR HER COLITIS. CLINIMIX AND LIPIDS CONTINUE.VSS. NO OTHER CHANGES.
--- NOTE | 2019-03-26 00:15 | NUR ---
PT HAS BECOME CONFUSED AND AGGITATED
--- NOTE | 2019-03-26 04:29 | NUR ---
SHIFT SUMMARY PT HAS BEEN AWAKE T/O SHIFT, VERY CONFUSED AND PARANOID, UNABLE TO RE-ORIENT, HELPED PT MAKE CALL TO DAUGHTER, PT DIDN'T TRUST THAT WAS DAUGHTER ON PHONE. MEDICATED 1X FOR ELEVATED BP 185/90, AT REASSESSMENT 162/67, PT IS BEDRESTING AT THIS TIME, WILL CONT TO MONITOR UNTIL REPORT GIVEN TO DAY RN.
[2019-03-26 05:23] LABS: BASOPHILS ABSOLUTE AUTO 0.03 K/mm3 (0.00-0.23); BASOPHILS PERCENT AUTO 0 % (0-2); EOSINOPHILS ABSOLUTE AUTO 0.08 K/mm3 (0.00-0.68); EOSINOPHILS PERCENT AUTO 1 % (0-6); Hematocrit 35.9 % (33.0-51.0); Hemoglobin 11.3 g/dL (11.5-16.0); IMMATURE GRAN ABSOLUTE AUTO 0.17 K/mm3 (0.00-0.10); IMMATURE GRAN PERCENT AUTO 2 % (0-1); LYMPHOCYTES ABSOLUTE AUTO 2.43 K/mm3 (0.84-5.20); LYMPHOCYTES PERCENT AUTO 34 % (21-46); MONOCYTES ABSOLUTE AUTO 1.35 K/mm3 (0.16-1.47); MONOCYTES PERCENT AUTO 19 % (4-13); Mean Corpuscular HGB 28.1 pg (26.0-34.0); Mean Corpuscular HGB Conc 31.5 g/dL (31.5-36.5); Mean Corpuscular Volume 89 fL (80-100); Mean Platelet Volume 11.7 fL (9.1-12.4); NEUTROPHILS ABSOLUTE AUTO 3.05 K/mm3 (1.96-9.15); NEUTROPHILS PERCENT AUTO 43 % (41-73); Platelet Count 87 K/mm3 (150-400); RDW Coefficient Variation 13.2 % (11.7-14.2); RDW Standard Deviation 42.8 fL (35.1-46.3); Red Blood Cell Count 4.02 M/mm3 (3.80-5.20); White Blood Cell Count 7.11 K/mm3 (4.00-11.30)
[2019-03-26 05:56] LABS: Calcium, Blood 8.6 mg/dL (8.5-10.1); Creatinine, Blood 1.18 mg/dL (0.40-1.00); Potassium, Blood 3.4 mmol/L (3.5-5.5)
--- NOTE | 2019-03-26 17:44 | NUR ---
SHIFT SUMMARY. ALERT, ORINETATED TO SELF. [facility] WITHOUT ISSUE, NO STOOL THIS SHIFT. PT DENIES PAIN, SOB, N/V. PT UP TO CHAIR FOR BREAKFAST AND LUNCH WITH TWO ASSIST PIVOT WITH GB. PLAN IS FOR PT TO D/C TO [address] TOMORROW. SON IN TO VISIT THIS AFTERNOON BRIEFLY. NO NEW CHANGES OR CONCERNS.
[2019-03-27 05:47] LABS: BASOPHILS ABSOLUTE AUTO 0.01 K/mm3 (0.00-0.23); BASOPHILS PERCENT AUTO 0 % (0-2); EOSINOPHILS ABSOLUTE AUTO 0.06 K/mm3 (0.00-0.68); EOSINOPHILS PERCENT AUTO 1 % (0-6); Hematocrit 33.2 % (33.0-51.0); Hemoglobin 10.3 g/dL (11.5-16.0); IMMATURE GRAN ABSOLUTE AUTO 0.17 K/mm3 (0.00-0.10); IMMATURE GRAN PERCENT AUTO 3 % (0-1); LYMPHOCYTES PERCENT AUTO 32 % (21-46); MONOCYTES ABSOLUTE AUTO 1.13 K/mm3 (0.16-1.47); MONOCYTES PERCENT AUTO 19 % (4-13); Mean Corpuscular HGB 28.5 pg (26.0-34.0); Mean Corpuscular Volume 92 fL (80-100); Mean Platelet Volume 12.1 fL (9.1-12.4); NEUTROPHILS ABSOLUTE AUTO 2.67 K/mm3 (1.96-9.15); NEUTROPHILS PERCENT AUTO 45 % (41-73); Platelet Count 107 K/mm3 (150-400); RDW Coefficient Variation 13.4 % (11.7-14.2); RDW Standard Deviation 44.6 fL (35.1-46.3); Red Blood Cell Count 3.62 M/mm3 (3.80-5.20); White Blood Cell Count 5.94 K/mm3 (4.00-11.30)
--- NOTE | 2019-03-27 06:11 | NUR ---
SHIFT SUMMARY ALERT, DISORIENTED; DIFFICULT TO CONSOLE. APPEARED TO REST MUCH OF SHIFT. HOWEVER, THIS AM STARTED YELLING OUT AND TRYING TO EXIT BED. ASKED IF IN PAIN; STATED YES, HOWEVER UNABLE TO STATED NUMBER. USED FLAAC SCALE. REPOSITIONED T/O NIGHT. NO OTHER ACUTE CHANGES NOTED. VSS/AFEBRILE. BED REMAINED IN LOWEST POSITION; ALARM ON. CALL LIGHT AND BELONGINGS WITHIN REACH. WCTM. REPORT TO ONCOMING RN.
[2019-03-27 06:25] LABS: Anion Gap 5 mmol/L (6-16); Blood Urea Nitrogen 31 mg/dL (8-24); Bun/Creatinine Ratio 26.1 (12.0-20.0); CO2, Blood 26 mmol/L (21-32); Calcium, Blood 8.6 mg/dL (8.5-10.1); Chloride, Blood 111 mmol/L (98-108); Creatinine, Blood 1.19 mg/dL (0.40-1.00); Glomerular Filtration Rate 46 (60-); Glucose, Blood 123 mg/dL (70-99); Magnesium, Blood 2.1 mg/dL (1.6-2.4); Phosphorus, Blood 3.5 mg/dL (2.5-4.9); Potassium, Blood 3.8 mmol/L (3.5-5.5); Sodium, Blood 142 mmol/L (136-145)
--- NOTE | 2019-03-27 11:43 | NUR ---
0800 PT LETHARGIC, ARROUSABLE WITH VERBAL STIMULI ALTHOUGH IS NOT ANSWERING QUESTIONS OR FOLLOWING DIRECTIONS, LISA, NO DROOP OBSERVED. 1030 PT MORE SOMULENT, IS NOT ARROUSING WITH PHYSICAL STIMULI. DR. JUAREZ NOTIFIED RECIEVED, HE PLACED ORDERS FOR NARCAN IV ONCE. [address] JUAREZ IN [place], HE WAS UPDATED THAT PT STILL UNAROUSBALE, NEW ORDER RECIEVED TO GIVE ANOTHER DOSE OF NARCAN ONE HOUR AFTER PREVIOUS DOSE.
--- NOTE | 2019-03-27 17:07 | NUR ---
SHIFT SUMMARY. PT CONTINUED WITH SOLMULENCE DURING SHIFT, PT WOULD AWAKE BREIFLY DURING INCONTINENCE CARE. PT UNABLE TO TAKE PO. CONITNUED WITH CLINIMIX. ALLY MANZO FROM [facility] REPORTED THAT SHE WILL RETURN TOMORROW TO EVALUATE PT FOR POSSIBLE RETURN TO FACILITY. NO OTHER CHANGES.
--- NOTE | 2019-03-27 21:17 | NUR ---
NARCAN X ONE GIVEN PER EMAR. LETHARGIC AND UNAROUSABLE PRIOR. PATIENT NOW ABLE TO ANSWER NAME AND . PHYSICAL STIMULI APPLIED AFTER NARCAN. PATIENT ABLE TO SIP ON WATER AND SITTING UP IN BED. WILL CONTINUE TO MONITOR.
--- NOTE | 2019-03-27 23:18 | NUR ---
PATIENT BP 188/71. IV APRESOLINE GIVEN PER EMAR FOR SBP >180. PATIENT BP 132/58 ON REASSESSMENT. WILL CONTINUE TO MONITOR.
--- NOTE | 2019-03-28 03:49 | NUR ---
SHIFT SUMMARY PATIENT RECEIVED SCHEDULE NARCAN X ONE. AROUSABLE AFTER PHYSICAL STIMULI, STERNAL RUB. ABLE TO ANSWER NAME AND AND INCLUDE SHORT SENTENCES RESPONSES. PATIENT DRANK SMALL SIPS OF WATER. BP ELEVATED TO 188/71 AND IV APRESOLINE GIVEN FOR SBP >180. REASSESSED AT 132/58. PIV REMAINS INTACT. CLINIMIX INFUSING AT 75 mL/HR. IV ABXS DC'D. POWERGLIDE MAGDALENO AND CBG 157. AFEBRILE. DENIES SOB AND N/V. CALL LIGHT IN REACH. BED IN LOWEST POSITION. WILL CONTINUE TO MONITOR UNTIL DAY SHIFT NURSE ASSUMES CARE.
--- NOTE | 2019-03-28 05:27 | NUR ---
PATIENT WOKE UP FOR LAB DRAW AND ASKED FOR WATER. SHE RESPONDED TO PAIN FROM LAB DRAW. ABLE TO HOLD CUP OF WATER. CALL LIGHT IN REACH. WILL CONTINUE TO MONITOR.
[2019-03-28 06:09] LABS: BASOPHILS ABSOLUTE AUTO 0.01 K/mm3 (0.00-0.23); BASOPHILS PERCENT AUTO 0 % (0-2); EOSINOPHILS ABSOLUTE AUTO 0.04 K/mm3 (0.00-0.68); EOSINOPHILS PERCENT AUTO 1 % (0-6); Hematocrit 34.6 % (33.0-51.0); Hemoglobin 10.7 g/dL (11.5-16.0); IMMATURE GRAN ABSOLUTE AUTO 0.11 K/mm3 (0.00-0.10); IMMATURE GRAN PERCENT AUTO 2 % (0-1); LYMPHOCYTES ABSOLUTE AUTO 1.21 K/mm3 (0.84-5.20); LYMPHOCYTES PERCENT AUTO 25 % (21-46); MONOCYTES ABSOLUTE AUTO 1.02 K/mm3 (0.16-1.47); MONOCYTES PERCENT AUTO 21 % (4-13); Mean Corpuscular HGB 28.5 pg (26.0-34.0); Mean Corpuscular HGB Conc 30.9 g/dL (31.5-36.5); Mean Corpuscular Volume 92 fL (80-100); Mean Platelet Volume 11.5 fL (9.1-12.4); NEUTROPHILS ABSOLUTE AUTO 2.41 K/mm3 (1.96-9.15); NEUTROPHILS PERCENT AUTO 50 % (41-73); Platelet Count 101 K/mm3 (150-400); RDW Coefficient Variation 13.8 % (11.7-14.2); RDW Standard Deviation 45.7 fL (35.1-46.3); Red Blood Cell Count 3.75 M/mm3 (3.80-5.20)
[2019-03-28 13:09] LABS: Influenza A Negative (NEGATIVE); Influenza B Negative (NEGATIVE)
--- NOTE | 2019-03-28 14:38 | NUR ---
DISCHARGE PT DISCHARGED BACK TO [place] [address]. THIS RN CALLED TO [place] [facility] FOR REPORT AND THEY REPORTED THEY DID NOT NEED ONE DUE TO RN OVER TO SEE PT THIS AM. PT TRANSFERRED TO WHEELCHAIR VAN VIA WHEELCHAIR. BELONGINGS WITH CONSERVATION OR HERITAGE ARCHITECT.
[2019-03-29] MEDS ORDERED: ACET500 PO (07:41)
[2019-03-29] MEDS ORDERED: AMLO5 PO (07:42)
[2019-03-29] MEDS ORDERED: METR500 PO (07:42)
[2019-03-29] MEDS ORDERED: Cefpodoxime Pr100 MG PO (07:42)
[2019-03-29] MEDS ORDERED: POTA10T PO (07:42)
[2019-03-29] MEDS ORDERED: Florastor250 MG PO (07:43)
[2019-03-30] MEDS ORDERED: Florastor250 MG PO (10:15)
[2019-03-30] MEDS ORDERED: THERA-D2000 UNIT PO (10:19)
[2019-03-30] MEDS ORDERED: VITAMIN D35000 UNI2 PO (10:19)
[2019-03-30] MEDS ORDERED: PROC5 PO (10:23)
== END 2019-03-28 14:36 | disposition home health service (06) | DRG 392 ==
LOC: ER 12:28 → MEDS 16:51 → ENPENDDIS 03-27 10:41 → MEDS 03-28 14:36
PROVIDERS: Emergency Medicine; Family Medicine; Hospitalist; ADMIT Internal Medicine
DX: A09 Infectious gastroenteritis and colitis, unspecified (principal); I13.0 Hypertensive heart and chronic kidney disease with heart failure and stage 1 through stage 4 chronic kidney disease, or unspecified chronic kidney disease; I50.32 Chronic diastolic (congestive) heart failure; N18.4 Chronic kidney disease, stage 4 (severe); E11.22 Type 2 diabetes mellitus with diabetic chronic kidney disease; F03.90 Unspecified dementia, unspecified severity, without behavioral disturbance, psychotic disturbance, mood disturbance, and anxiety; Z66 Do not resuscitate; R54 Age-related physical debility; E03.9 Hypothyroidism, unspecified; E66.9 Obesity, unspecified; B95.62 Methicillin resistant Staphylococcus aureus infection as the cause of diseases classified elsewhere; I25.10 Atherosclerotic heart disease of native coronary artery without angina pectoris; Z79.4 Long term (current) use of insulin; F32.9 Major depressive disorder, single episode, unspecified; R41.82 Altered mental status, unspecified; T40.605A Adverse effect of unspecified narcotics, initial encounter
CPT/HCPCS: 0097U; 36415; 74177; 80048; 80053; 80069; 81001; 82947; 83690; 83735; 84100; 85025; 87081; 87324; 87493; 87804; 93005; 93010; 96365-59; 96375; 97110; 97162; 99285-25; A9270-GY; J0360; J0696; J0780; J1650; J2270; J2310; J2543; J2550; J2765; J3480; J7040; J7050; J7120; Q9967